=== PATIENT | male | born 1955 | race Caucasian/White ===

== ENCOUNTER 2019-12-29 19:25 | Emergency (ER) | payer OTHER ==
[~2019-12-29] VITALS: Ht 180.3 cm; Wt 120.2 kg
[2019-12-29 19:25] VITALS: BP 132/75
== END 2019-12-29 20:08 | disposition home or self-care (01) ==
LOC: ER 19:32
DX: L02.215 Cutaneous abscess of perineum (principal); I12.0 Hypertensive chronic kidney disease with stage 5 chronic kidney disease or end stage renal disease; E11.22 Type 2 diabetes mellitus with diabetic chronic kidney disease; N18.6 End stage renal disease; I25.2 Old myocardial infarction; E78.5 Hyperlipidemia, unspecified; Z95.5 Presence of coronary angioplasty implant and graft; Z99.2 Dependence on renal dialysis

== ENCOUNTER 2019-12-31 10:26 | Inpatient (IN) | payer OTHER ==
[~2019-12-31] VITALS: Ht 180.3 cm; Wt 120.2 kg
--- NOTE | 2019-12-31 10:30 | NUR ---
BIBRA60 HOME FOR WORSENING PERINEAL ABSCESS. TOOK ANTIBIOTICS, NO RELIEF. PATIENT A/OX4, BREATHING EVEN AND UNLABORED, NO SOB NOTED. C/O MILD PAIN. CHANGED INTO A GOWN, ATTACHED TO THE INTERVENTIONIST.
[2019-12-31] MEDS ORDERED: PIPERACILLIN /TAZOBACTAM 3.375 G in IV D5W 50 ML IV ONE (11:00)
[2019-12-31] MEDS ORDERED: VANCOMYCIN 1 GM in IV D5W 250 ML IV ONE (11:00)
[2019-12-31 11:16] LABS: ALBUMIN 3.1 g/dL (3.4-5.0); BILIRUBIN,DIRECT 0.2 mg/dL (0.0-0.2); BILIRUBIN,TOTAL 0.5 mg/dL (0.2-1.0); CALCIUM, SERUM 8.7 mg/dL (8.5-10.1); POTASSIUM 4.7 mmol/L (3.5-5.1); TOTAL PROTEIN, SERUM 7.3 g/dL (6.4-8.2)
--- NOTE | 2019-12-31 11:16 | NUR ---
MOVE SHEET COMPLETED AND CALLED FOR MS BED.
--- NOTE | 2019-12-31 11:28 | NUR ---
[facility] [phone] [facility] .
[2019-12-31] MEDS ORDERED: RALT400T PO (11:30)
[2019-12-31] MEDS ORDERED: ALBU8.5H8 INH (11:30)
[2019-12-31] MEDS ORDERED: CINA30TA2 PO (11:30)
[2019-12-31] MEDS ORDERED: ABAC300T2 PO (11:30)
[2019-12-31] MEDS ORDERED: SEVE800T28 PO (11:30)
[2019-12-31] MEDS ORDERED: WARF6TAB49 PO (11:30)
[2019-12-31] MEDS ORDERED: ETRA200T PO (11:30)
[2019-12-31] MEDS ORDERED: ATOR20TA PO (11:30)
[2019-12-31] MEDS ORDERED: AMIO200T5 PO (11:30)
[2019-12-31] MEDS ORDERED: INSU100C4 SQ (11:30)
[2019-12-31] MEDS ORDERED: PREG75CA76 PO (11:30)
[2019-12-31] MEDS ORDERED: INSU100V7 SQ (11:30)
[2019-12-31 11:32] LABS: BASOPHILS # (AUTO) 0.1 /CMM (0.0-0.2); BASOPHILS % (AUTO) 0.7 % (0.0-2.0); EOSINOPHILS % (AUTO) 4.3 % (0.0-6.0); HEMATOCRIT 31 % (39-51); LYMPHOCYTES # (AUTO) 1.4 /CMM (0.8-4.8); MEAN CORPUSCULAR HGB CONC 33 g/dl (31.0-36.0); MEAN CORPUSCULAR VOLUME 100 fL (80-96); MONOCYTES # (AUTO) 0.6 /CMM (0.1-1.30); MONOCYTES % (AUTO) 7.1 % (2.0-12.0); NEUTROPHILS # (AUTO) 6.6 /CMM (1.8-8.9); NEUTROPHILS % (AUTO) 72.9 % (43.0-81.0); PLATELET COUNT (AUTO) 177 /CMM (150-450); RED BLOOD CELL COUNT(AUTO) 3.06 MIL/uL (4.5-6.0)
[2019-12-31 11:37] LABS: CREATININE 7.9 mg/dL (0.6-1.3)
--- NOTE | 2019-12-31 12:08 | NUR ---
PT WILL GO TO MS RM 108.
--- NOTE | 2019-12-31 12:21 | NUR ---
RECEIVED AUTHORIZATION FOR PATIENT TO STAY [facility] СЕРГЕЙ. [phone]. FAX # FOR FACESHEET AND CLINICALS [phone]
--- NOTE | 2019-12-31 12:23 | NUR ---
BED 108
--- NOTE | 2019-12-31 12:25 | NUR ---
REPORT GIVEN TO VISH AMIN.
--- NOTE | 2019-12-31 13:06 | NUR ---
PATIENTS BED CHANGED TO 120, PATIENT A/OX4, BREATHING EVEN AND UNLABORED, NO SOB NOTED. TRANSFERRED TO [facility]. IN STABLE CONDITION.
--- NOTE | 2019-12-31 13:38 | NUR ---
PT RECEIVED FROM YARD SPOTTER JOHN. VITALS 139/74, PULSE 90, 99% O2, RR 24.. PT AMBULATORY AND SOB AFTER TRANSFERRING TO BED. Addendum: 12/31/19 at 1509 by ALEXI OTTO RN TEMP 98.3
[2019-12-31 16:00] VITALS: BP 140/78
[2019-12-31] MEDS ORDERED: Z GUARD REMEDY 2 OZ OINT TP PRN (16:00)
[2019-12-31] MEDS ORDERED: ACETAMINOPHEN 325 MG TABLET PO PRN (16:00)
[2019-12-31] MEDS ORDERED: ZOLPIDEM TARTRATE 5 MG TABLET PO PRN (16:00)
[2019-12-31] MEDS ORDERED: DEXTROSE 50%-WATER 50 ML DISP.SYRIN IV PRN (16:00)
[2019-12-31] MEDS ORDERED: ONDANSETRON HCL/PF 4 MG/2 ML VIAL IVP PRN (16:00)
[2019-12-31] MEDS ORDERED: MAGNESIUM HYDROXIDE 30 ML UDC PO PRN (16:00)
[2019-12-31] MEDS ORDERED: ALBUTEROL SULFATE INH 18 GM HFA.AER.AD IH SCH (16:30)
[2019-12-31] MEDS: WARFARIN SODIUM 5 MG TABLET PO SCH (17:00)
[2019-12-31] MEDS ORDERED: INTELENCE 200 MG PO SCH (17:00)
[2019-12-31] MEDS: BLOOD SUGAR DIAGNOSTIC 1 EACH STRIP IN SCH ×2 (17:37→22:09)
[2019-12-31] MEDS: SEVELAMER CARBONATE 800 MG TABLET PO SCH (17:38)
[2019-12-31] MEDS: HYDROCODONE/APAP 5/325MG TABLET PO PRN (17:50)
[2019-12-31] MEDS: INSULIN REGULAR, HUMAN 100 UNIT/ML 3 ML VIAL SQ PRN ×2 (17:53→22:13)
--- NOTE | 2019-12-31 18:43 | NUR ---
PT IN BED EATING DINNER ALERT AND ORIENTED X 4. PT ON RA, NOTES SOB UPON SITTING UP AND EXERTION. NO RESPIRATORY DISTRESS O2 SATURATION 96-100%. PT TO HAVE HD LATER TONIGHT. PT MODERATE ASSIST IN BED. PT HAS PERINEAL ABCESS TO BE DRAINED, OTHERWISE SKIN INTACT. PT HAS R FOOT DIABETIC ULCER PENDING WOUND AND PODIATRY CONSULT. PT HAS LEFT HAND #20 SALINE LOCKED AND FLUSHED WELL, NO SIGNS OF INFECTION OR INFILTRATION. PT HAS R AV SHUNT FOR HD. BED IN LOCKED LOWEST POSITION, CALL LIGHT WITHIN REACH, ALL SAFETY MEASURES IN PLACE. WILL GIVE REPORT TO ONCOMING RN FOR SANTOS
[2019-12-31 20:00] VITALS: BP 125/42
[2019-12-31] MEDS ORDERED: ALBUTEROL FS 2.5 MG/0.5 ML VIAL.NEB NEB PRN (21:00)
[2019-12-31] MEDS ORDERED: ALBUTEROL FS 2.5 MG/3 ML VIAL.NEB NEB PRN (21:00)
[2019-12-31] MEDS: PIPERACILLIN /TAZOBACTAM 2.25 G in IV D5W 50 ML IV SCH (21:42)
[2019-12-31] MEDS: ATORVASTATIN 10 MG TABLET PO SCH (21:42)
--- NOTE | 2019-12-31 23:25 | NUR ---
PRN VANCO IV AFTER HD CLARIFIED WITH SHOP DIRECTOR DICK, RE: IF DOSE TO BE GIVEN TONIGHT.
[2019-12-31] MEDS: VANCOMYCIN 500 MG in IV D5W 100 ML IV PRN (23:35)
[2020-01-01] MEDS ORDERED: LEVOFLOXACIN 250 MG /D5W 50 ML 250 MG in PREMIX 1 EA IV SCH ×2 (01:18→21:00)
[2020-01-01] MEDS ORDERED: LEVOFLOXACIN 250 MG /D5W 50 ML 50 ML IV ONE (01:43)
[2020-01-01] MEDS: HYDROCODONE/APAP 5/325MG TABLET PO PRN ×4 (03:56→16:27)
[2020-01-01] MEDS: PIPERACILLIN /TAZOBACTAM 2.25 G in IV D5W 50 ML IV SCH ×4 (04:48→21:16)
--- NOTE | 2020-01-01 06:31 | NUR ---
MS RN CLOSING NOTES: PATIENT IS SITTING AT THE EDGE OF THE BED, BRUSHING AND SHAVING. NO S/S OF DISTRESS NOTED. CALL LIGHT WITHIN REACH. BED. BED IN LOWEST AND LOCKED POSITION.PATIENT VERBALIZED" I FEEL VERY GOOD TODAY". AND ACCORDING TO THE PATIENT, HE RESTED THROUGHOUT THE NIGHT.
[2020-01-01 06:53] LABS: BASOPHILS # (AUTO) 0.1 /CMM (0.0-0.2); BASOPHILS % (AUTO) 0.8 % (0.0-2.0); EOSINOPHILS % (AUTO) 4.1 % (0.0-6.0); HEMATOCRIT 32 % (39-51); HEMOGLOBIN 10.5 g/dL (13.5-17.5); LYMPHOCYTES # (AUTO) 1.2 /CMM (0.8-4.8); LYMPHOCYTES % (AUTO) 9.6 % (20.0-44.0); MEAN CORPUSCULAR HGB CONC 33 g/dl (31.0-36.0); MEAN CORPUSCULAR VOLUME 100 fL (80-96); MONOCYTES # (AUTO) 0.7 /CMM (0.1-1.30); MONOCYTES % (AUTO) 5.8 % (2.0-12.0); NEUTROPHILS # (AUTO) 9.7 /CMM (1.8-8.9); NEUTROPHILS % (AUTO) 79.7 % (43.0-81.0); PLATELET COUNT (AUTO) 197 /CMM (150-450); RED BLOOD CELL COUNT(AUTO) 3.25 MIL/uL (4.5-6.0); WHITE BLOOD COUNT (AUTO) 12.1 K/uL (4.3-11.0)
[2020-01-01 07:31] LABS: CALCIUM, SERUM 9.2 mg/dL (8.5-10.1); MAGNESIUM 2.2 mg/dL (1.8-2.4); PHOSPHORUS 4.2 mg/dL (2.5-4.9); POTASSIUM 5.6 mmol/L (3.5-5.1)
[2020-01-01 07:58] LABS: CREATININE 7.5 mg/dL (0.6-1.3)
[2020-01-01 08:00] VITALS: BP 133/68
[2020-01-01] MEDS: CINACALCET HCL 30 MG TABLET PO SCH (08:18)
[2020-01-01] MEDS: SEVELAMER CARBONATE 800 MG TABLET PO SCH ×4 (08:18→18:31)
[2020-01-01] MEDS: PREGABALIN 25 MG CAPSULE PO SCH (08:18)
[2020-01-01] MEDS: BLOOD SUGAR DIAGNOSTIC 1 EACH STRIP IN SCH ×4 (08:18→22:06)
[2020-01-01] MEDS: INSULIN REGULAR, HUMAN 100 UNIT/ML 3 ML VIAL SQ PRN ×4 (08:19→22:13)
[2020-01-01] MEDS: AMIODARONE HCL 200 MG TABLET PO SCH (08:21)
--- NOTE | 2020-01-01 09:39 | NUR ---
WOUND CARE CONSULT: PT PRESENTS WITH DISCOLORED AREA BETWEEN SCROTUM AND PERINEUM WHICH IS PAINFUL AND ALSO HEALED DIABETIC ULCER TO RT PLANTAR FOOT, PRESENT ON ADMISSION. RECOMMENDATIONS MADE FOR SKIN PROTECTION. DISCUSSED WITH NURSING STAFF. PT IS INDEPENDENT WITH BED MOBILITY AND CONTINENT. WILL SEE PRN. KELLY IN AGREEMENT WITH PLAN OF CARE. Addendum: 01/01/20 at 0940 by KEHINDE BRASWELL WNDNU Amended: Links added.
[2020-01-01] MEDS ORDERED: MORPHINE SULFATE INJ 2 MG/ML DISP.SYRIN IV PRN (11:00)
[2020-01-01] MEDS ORDERED: LIDOCAINE 1%-EPI 1:100,000 20 ML VIAL IJ ONE (12:30)
--- NOTE | 2020-01-01 13:00 | NUR ---
RN MED SURG1 CALL PHARMACY ABOUT HOLDING RENVELA BECAUSE PATIENT WAS ON DIALYSIS AND WAS TOLD TO SKIP THE 1300 DOSE AND GIVE THE DINNER DOSE
[2020-01-01 16:00] VITALS: BP 117/67
[2020-01-01] MEDS: VANCOMYCIN 500 MG in IV D5W 100 ML IV PRN (18:01)
[2020-01-01] MEDS: WARFARIN SODIUM 5 MG TABLET PO SCH (18:01)
[2020-01-01 20:00] VITALS: BP 111/59
[2020-01-01] MEDS: ATORVASTATIN 10 MG TABLET PO SCH (22:07)
[2020-01-02 04:00] VITALS: BP 115/65
[2020-01-02] MEDS: PIPERACILLIN /TAZOBACTAM 2.25 G in IV D5W 50 ML IV SCH ×2 (05:21→14:25)
[2020-01-02 06:40] LABS: BASOPHILS # (AUTO) 0.1 /CMM (0.0-0.2); BASOPHILS % (AUTO) 0.8 % (0.0-2.0); EOSINOPHILS % (AUTO) 5.4 % (0.0-6.0); HEMATOCRIT 30 % (39-51); HEMOGLOBIN 9.9 g/dL (13.5-17.5); LYMPHOCYTES % (AUTO) 11.4 % (20.0-44.0); MEAN CORPUSCULAR HGB CONC 33 g/dl (31.0-36.0); MEAN CORPUSCULAR VOLUME 100 fL (80-96); MONOCYTES # (AUTO) 0.8 /CMM (0.1-1.30); MONOCYTES % (AUTO) 8.9 % (2.0-12.0); NEUTROPHILS # (AUTO) 6.4 /CMM (1.8-8.9); NEUTROPHILS % (AUTO) 73.5 % (43.0-81.0); PLATELET COUNT (AUTO) 166 /CMM (150-450); RED BLOOD CELL COUNT(AUTO) 3.03 MIL/uL (4.5-6.0); WHITE BLOOD COUNT (AUTO) 8.7 K/uL (4.3-11.0)
--- NOTE | 2020-01-02 06:44 | NUR ---
MS-1/LEONARDO CUETO RN ATTEMPTED [address] PERIPHERAL IV. NO IV LINE ESTABLISHED. MIDLINE ORDERED. KATYA CHOPPER OPERATOR NOTIFIED. WILL ENDORSE TO AM SHIFT.
[2020-01-02 07:06] LABS: CALCIUM, SERUM 9.2 mg/dL (8.5-10.1); MAGNESIUM 2.3 mg/dL (1.8-2.4); PHOSPHORUS 4.9 mg/dL (2.5-4.9)
[2020-01-02 07:13] LABS: CREATININE 7.7 mg/dL (0.6-1.3)
--- NOTE | 2020-01-02 07:30 | NUR ---
RN MS NOTES PT IN BED, AWAKE, ALERT AND ORIENTED, NO COMPLAINT AT THIS TIME, RESPIRATIONS NORMAL, NOT IN DISTRESS, CALL LIGHT WITHIN REACH, EATING BREAKFAST, NO BLEEDING NOTED AT AV FISTULA SITE AT RIGHT ARM, NEEDS ATTENDED.
[2020-01-02 08:00] VITALS: BP 128/70
[2020-01-02] MEDS: SEVELAMER CARBONATE 800 MG TABLET PO SCH ×3 (08:05→17:12)
[2020-01-02] MEDS: PREGABALIN 25 MG CAPSULE PO SCH (08:05)
[2020-01-02] MEDS: CINACALCET HCL 30 MG TABLET PO SCH (08:06)
[2020-01-02] MEDS: AMIODARONE HCL 200 MG TABLET PO SCH (08:06)
[2020-01-02] MEDS: BLOOD SUGAR DIAGNOSTIC 1 EACH STRIP IN SCH ×3 (08:12→17:36)
[2020-01-02] MEDS: INSULIN REGULAR, HUMAN 100 UNIT/ML 3 ML VIAL SQ PRN ×3 (08:12→17:36)
[2020-01-02] MEDS: HYDROCODONE/APAP 5/325MG TABLET PO PRN (10:08)
--- NOTE | 2020-01-02 13:08 | NUR ---
RN MS NOTES PT IN BED, AWAKE, ALERT AND ORIENTED, PAIN MEDS GIVEN ORDERED, DRESSING AT PERINEAL/SCROTAL AREA CHANGED, NO BLEEDING OR DISCHARGE NOTED, BLOOD SUGAR CHECKED, INSULIN GIVEN PER SLIDING SCALE ORDERED, AWAITING MIDLINE PLACEMENT, NEEDS ATTENDED.
[2020-01-02] MEDS ORDERED: LEVO500T90 PO (15:39)
[2020-01-02] MEDS ORDERED: HYDR-4384 PO (15:39)
[2020-01-02 16:00] VITALS: BP 140/74
[2020-01-02] MEDS ORDERED: ABACAVIR SULFATE 300 MG TABLET PO SCH (16:00)
[2020-01-02] MEDS: WARFARIN SODIUM 5 MG TABLET PO SCH (16:17)
[2020-01-02] MEDS ORDERED: RALTEGRAVIR POTASSIUM 400 MG TABLET PO SCH (17:00)
--- NOTE | 2020-01-02 18:08 | NUR ---
RN MS NOTES PT IN BED, AWAKE, ALERT AND ORIENTED, NO COMPLAINT OF PAIN, BREATHING PATTERN NORMAL, TOLERATES ROOM AIR, SEEN BY DR. RANDLE, DISCHARGE ORDER GIVEN, DISCHARGE AND MEDICATION INSTRUCTIONS PROVIDED TO PT, VERBALIZED UNDERSTANDING, PT'S OWN MEDS GIVEN TO PT, BELONGINGS ACCOUNTED FOR, WOUND DRESSING AND WOUND TREATMENT DONE ORDERED, NEW PRESCRIPTION GIVEN TO PT, AWAITING AMBULANCE FLAMER SEALER AT 7PM.
--- NOTE | 2020-01-02 19:39 | NUR ---
ON BED A/O X4,AWAITING FOR TRANSPORT TO HOME,DENIES ANY DISCOMFORTS.
--- NOTE | 2020-01-02 20:11 | NUR ---
MS RN NOTES HARDNESS INSPECTOR BY AMBULANCE TO HOME IN STABLE CONDITION.MIDLINE LEFT UPPER ARM REMOVED.NO BLEEDING NOTED.
== END 2020-01-02 20:09 | disposition home or self-care (01) | DRG 579 ==
LOC: ER 10:37 → MEDSG1 12:32
PROVIDERS: ADMIT Nurse Practitioner Acute Care; ATTEND Nurse Practitioner Acute Care
PROC: 5A1D70Z Performance of Urinary Filtration, Intermittent, Less than 6 Hours Per Day (ICD-10-PCS; 2019-12-31)
PROC: 0H99XZZ Drainage of Perineum Skin, External Approach (ICD-10-PCS; principal; 2020-01-01)
PROC: 05H633Z Insertion of Infusion Device into Left Subclavian Vein, Percutaneous Approach (ICD-10-PCS; 2020-01-02)
PROC: B547ZZA Ultrasonography of Left Subclavian Vein, Guidance (ICD-10-PCS; 2020-01-02)
DX: L02.215 Cutaneous abscess of perineum (principal); N18.6 End stage renal disease; E87.1 Hypo-osmolality and hyponatremia; I12.0 Hypertensive chronic kidney disease with stage 5 chronic kidney disease or end stage renal disease; E44.0 Moderate protein-calorie malnutrition; D68.69 Other thrombophilia; N49.2 Inflammatory disorders of scrotum; Z99.2 Dependence on renal dialysis; E11.22 Type 2 diabetes mellitus with diabetic chronic kidney disease; E78.5 Hyperlipidemia, unspecified; I25.10 Atherosclerotic heart disease of native coronary artery without angina pectoris; E88.09 Other disorders of plasma-protein metabolism, not elsewhere classified; E11.621 Type 2 diabetes mellitus with foot ulcer; L97.519 Non-pressure chronic ulcer of other part of right foot with unspecified severity; E66.9 Obesity, unspecified; Z68.37 Body mass index [BMI] 37.0-37.9, adult; D63.1 Anemia in chronic kidney disease; Z79.4 Long term (current) use of insulin; E11.51 Type 2 diabetes mellitus with diabetic peripheral angiopathy without gangrene; I25.2 Old myocardial infarction; Z79.899 Other long term (current) drug therapy
CPT/HCPCS: 36415; 71045-TC; 76870-TC; 80048-TC; 80061-TC; 80076-TC; 80202-TC; 82962-TC; 83605-TC; 83735-TC; 84100-TC; 85025-TC; 85610-TC; 85730-TC; 87040-TC; 87070-TC; 87081-TC; 90935-TC; A4216; A6253; A6403; G0378; J1815; J1956; J2543; J3370; J3490; J7050; J7060

== ENCOUNTER 2020-01-21 20:14 | Emergency (ER) | payer OTHER ==
[~2020-01-21] VITALS: Ht 180.3 cm; Wt 117.9 kg
[~2020-01-21 20:14] MED LIST: ABAC300T2 PO; ALBU8.5H8 INH; AMIO200T5 PO; ATOR20TA PO; CINA30TA2 PO; ETRA200T PO; HYDR-4384 PO; INSU100C4 SQ; INSU100V7 SQ; LEVO500T90 PO; PREG75CA76 PO; RALT400T PO; SEVE800T28 PO; WARF6TAB49 PO
--- NOTE | 2020-01-21 21:22 | NUR ---
C/O FOREHEAD CONTUSION S/P TRIP AND FALL HIT FACE ON THE FLOOR. (-)KO TO ER BED 15.
--- NOTE | 2020-01-21 21:28 | NUR ---
PT TAKEN TO CT
--- NOTE | 2020-01-21 21:38 | NUR ---
PT BACK FROM CT
--- NOTE | 2020-01-21 21:45 | NUR ---
PHLEB AT BEDSIDE DRAWING LABS
[2020-01-21 22:15] LABS: BASOPHILS % (AUTO) 0.8 % (0.0-2.0); EOSINOPHILS % (AUTO) 6.5 % (0.0-6.0); HEMATOCRIT 31 % (39-51); HEMOGLOBIN 9.9 g/dL (13.5-17.5); LYMPHOCYTES # (AUTO) 0.8 /CMM (0.8-4.8); LYMPHOCYTES % (AUTO) 20.3 % (20.0-44.0); MEAN CORPUSCULAR HGB CONC 32 g/dl (31.0-36.0); MEAN CORPUSCULAR VOLUME 101 fL (80-96); MONOCYTES # (AUTO) 0.3 /CMM (0.1-1.30); MONOCYTES % (AUTO) 8.1 % (2.0-12.0); NEUTROPHILS # (AUTO) 2.6 /CMM (1.8-8.9); NEUTROPHILS % (AUTO) 64.3 % (43.0-81.0); PLATELET COUNT (AUTO) 121 /CMM (150-450); RED BLOOD CELL COUNT(AUTO) 3.08 MIL/uL (4.5-6.0); WHITE BLOOD COUNT (AUTO) 4.1 K/uL (4.3-11.0)
[2020-01-21 22:42] LABS: POTASSIUM 5.4 mmol/L (3.5-5.1)
--- NOTE | 2020-01-21 22:47 | NUR ---
Patient discharged to home in stable condition. Written and verbal after care instructions given. Patient verbalizes understanding of instruction.
[2020-01-21 22:48] VITALS: BP 139/61
[2020-01-21 22:48] LABS: CREATININE 8.9 mg/dL (0.6-1.3)
== END 2020-01-21 22:49 | disposition home or self-care (01) ==
LOC: ER 20:14
DX: S00.83XA Contusion of other part of head, initial encounter (principal); S00.11XA Contusion of right eyelid and periocular area, initial encounter; I12.0 Hypertensive chronic kidney disease with stage 5 chronic kidney disease or end stage renal disease; E11.22 Type 2 diabetes mellitus with diabetic chronic kidney disease; N18.6 End stage renal disease; R79.1 Abnormal coagulation profile; E78.5 Hyperlipidemia, unspecified; I25.2 Old myocardial infarction; Z99.2 Dependence on renal dialysis; Z95.5 Presence of coronary angioplasty implant and graft; Z79.4 Long term (current) use of insulin; Z79.82 Long term (current) use of aspirin; W01.0XXA Fall on same level from slipping, tripping and stumbling without subsequent striking against object, initial encounter; Y93.89 Activity, other specified; Y92.89 Other specified places as the place of occurrence of the external cause; Y99.8 Other external cause status
CPT/HCPCS: 36415; 70450-TC; 80048-TC; 85025-TC; 85730-TC

== ENCOUNTER 2020-08-27 10:27 | Emergency (ER) | payer OTHER ==
[~2020-08-27] VITALS: Ht 175.3 cm; Wt 120.2 kg
--- NOTE | 2020-08-27 10:27 | NUR ---
PT BIBRA 860 FROM HOME C/O LOW BACK PAIN S/P SLIP AND FALL. PT IS AAOX4, NOT IN RESPIRATORY DISTRESS, V/S STABLE, KEPT RESTED AND COMFORTABLE. WILL CONTINUE TO MONITOR.
--- NOTE | 2020-08-27 10:43 | NUR ---
AT BEDSIDE FOR BLOOD DRAW.
--- NOTE | 2020-08-27 11:25 | NUR ---
PT IS BACK FROM THE CT SCAN.
--- NOTE | 2020-08-27 12:43 | NUR ---
TRANSPORT CALLED [facility] WITH ETA 60 MINS.
[2020-08-27] MEDS ORDERED: ACETAMINOPHEN ES 500 MG TABLET ONE (12:58)
[2020-08-27] MEDS ORDERED: ACETAMINOPHEN ES 500 MG TABLET PO ONE (13:30)
--- NOTE | 2020-08-27 13:49 | NUR ---
REPORT GIVEN TO EMT FOR PT DISHARGED BACK HOME. V/S STABLE.
[2020-08-27 13:50] VITALS: BP 131/62
== END 2020-08-27 13:50 | disposition home or self-care (01) ==
LOC: ER 10:45
DX: S33.5XXA Sprain of ligaments of lumbar spine, initial encounter (principal); S16.1XXA Strain of muscle, fascia and tendon at neck level, initial encounter; S89.82XA Other specified injuries of left lower leg, initial encounter; R51.9 Headache, unspecified; I25.2 Old myocardial infarction; E78.5 Hyperlipidemia, unspecified; I12.0 Hypertensive chronic kidney disease with stage 5 chronic kidney disease or end stage renal disease; E11.22 Type 2 diabetes mellitus with diabetic chronic kidney disease; N18.6 End stage renal disease; Z99.2 Dependence on renal dialysis; E11.40 Type 2 diabetes mellitus with diabetic neuropathy, unspecified; Z79.4 Long term (current) use of insulin; Z79.899 Other long term (current) drug therapy; Z79.01 Long term (current) use of anticoagulants; W01.0XXA Fall on same level from slipping, tripping and stumbling without subsequent striking against object, initial encounter; Y93.89 Activity, other specified; Y92.89 Other specified places as the place of occurrence of the external cause; Y99.8 Other external cause status
CPT/HCPCS: 70450-TC; 72125-TC; 72131-TC; 73564-TC

== ENCOUNTER 2021-08-30 09:59 | Inpatient (IN) | payer OTHER ==
[~2021-08-30] VITALS: Ht 180.3 cm; Wt 121.6 kg
[~2021-08-30 09:59] MED LIST changes: +PREG-58 PO; -PREG75CA76 PO
--- NOTE | 2021-08-30 10:20 | NUR ---
THE PATIENT BIBS FOR DIALYSIS SHUNT MALFUNCTION,R FA,UNABLE TO BE DIALYZED THIS MORNING. THE PATIENT IS ALERT AND ORIENTED X4. IN ROOM AIR AND DENIES SOB. RESPIRATION REGULAR AND UNLABORED. THE PATIENT IS ATTACHED TO THE MONITOR. WILL CONTINUE TO MONITOR THE PATIENT.
[2021-08-30 10:52] LABS: BASOPHILS % (AUTO) 0.5 % (0.0-2.0); EOSINOPHILS % (AUTO) 6.5 % (0.0-6.0); HEMATOCRIT 33 % (39-51); HEMOGLOBIN 10.8 g/dL (13.5-17.5); LYMPHOCYTES % (AUTO) 12.1 % (20.0-44.0); MEAN CORPUSCULAR HGB CONC 32 g/dl (31.0-36.0); MEAN CORPUSCULAR VOLUME 94 fL (80-96); MONOCYTES # (AUTO) 0.5 K/uL (0.1-1.30); MONOCYTES % (AUTO) 6.1 % (2.0-12.0); NEUTROPHILS # (AUTO) 5.9 K/uL (1.8-8.9); NEUTROPHILS % (AUTO) 74.8 % (43.0-81.0); PLATELET COUNT (AUTO) 131 K/uL (150-450); RED BLOOD CELL COUNT(AUTO) 3.56 MIL/uL (4.5-6.0); WHITE BLOOD COUNT (AUTO) 7.9 K/uL (4.3-11.0)
[2021-08-30 11:03] LABS: CALCIUM, SERUM 9.1 mg/dL (8.5-10.1); POTASSIUM 5.1 mmol/L (3.5-5.1)
--- NOTE | 2021-08-30 11:13 | NUR ---
TAMMY 9.2 DR[address] ZAYAS INFORMED.
[2021-08-30 11:14] LABS: CREATININE 9.2 mg/dL (0.6-1.3)
--- NOTE | 2021-08-30 11:14 | NUR ---
MOVE SHEET SUBMITTED.
--- NOTE | 2021-08-30 11:30 | NUR ---
CALLED [facility]ULAR [employer] WILL CALL US BACK.
--- NOTE | 2021-08-30 11:34 | NUR ---
DR. WILBURN SPEAKING WITH DR. ZAYAS.
--- NOTE | 2021-08-30 11:34 | NUR ---
[facility] CALLED [employer] PAGED.
--- NOTE | 2021-08-30 11:39 | NUR ---
covid antigen swab done and sent to the lab
[2021-08-30] MEDS ORDERED: LIDO30AD10 TP (12:33)
[2021-08-30] MEDS ORDERED: LIRA0.6P2 PO (12:33)
[2021-08-30] MEDS ORDERED: ALBU8.5H8 INH (12:33)
[2021-08-30] MEDS ORDERED: DOLU1TAB PO (12:33)
[2021-08-30] MEDS ORDERED: AMIO200T5 PO (12:33)
[2021-08-30] MEDS ORDERED: PREG-58 PO (12:33)
[2021-08-30] MEDS ORDERED: ATOR20TA PO (12:33)
[2021-08-30] MEDS ORDERED: INSU100I4 SQ (12:33)
[2021-08-30] MEDS ORDERED: CLOP75TA15 PO (12:33)
[2021-08-30] MEDS ORDERED: INSU100V7 SQ (12:33)
[2021-08-30] MEDS ORDERED: CARV3.122 PO (12:33)
[2021-08-30] MEDS ORDERED: MIDO10TA PO (12:33)
[2021-08-30] MEDS ORDERED: ONDANSETRON HCL/PF 4 MG/2 ML VIAL IVP PRN (13:00)
[2021-08-30] MEDS ORDERED: DEXTROSE 50%-WATER 50 ML DISP.SYRIN IV PRN (13:00)
[2021-08-30] MEDS ORDERED: ACETAMINOPHEN 325 MG TABLET PO PRN (13:00)
[2021-08-30] MEDS ORDERED: MAG HYDROX/AL HYDROX/SIMETH 30 ML UDC PO PRN (13:00)
[2021-08-30] MEDS ORDERED: MAGNESIUM HYDROXIDE 30 ML UDC PO PRN (13:00)
[2021-08-30] MEDS ORDERED: Z GUARD REMEDY 4 OZ OINT TP PRN (13:00)
[2021-08-30] MEDS: BLOOD SUGAR DIAGNOSTIC 1 EACH STRIP IN SCH ×3 (13:16→21:00)
[2021-08-30] MEDS: INSULIN REGULAR, HUMAN 100 UNIT/ML 3 ML VIAL SQ PRN ×3 (13:16→22:00)
[2021-08-30] MEDS ORDERED: INSULIN REGULAR, HUMAN 100 UNIT/ML 10 ML VIAL ONE (13:24)
--- NOTE | 2021-08-30 13:30 | NUR ---
BED GIVEN 327-1
--- NOTE | 2021-08-30 13:30 | NUR ---
RENAL STD AND CCHO STD DIET START TIME 08/30/21 LUNCH AND NPO AFTER MIDNIGHT PER BERNADETTE SIMON. THE ORDERS ARE READ BACK, VERIFIED. NOTED AND CARRIED OUT.
--- NOTE | 2021-08-30 13:40 | NUR ---
REPORT GIVEN TO CRYSTAL FOR SANTOS
[2021-08-30] MEDS ORDERED: LIDOCAINE 5% (PATCH) 1 EA PATCH TP PRN (14:00)
--- NOTE | 2021-08-30 14:12 | NUR ---
DR WILBURN AT THE BEDSIDE, RECEIVED A NEW ORDER OF KAYEXELATE 30 G ONCE. THE ORDER IS READ BACK, VERIFIED. NOTED AND CARRIED OUT.
[2021-08-30] MEDS ORDERED: SODIUM POLYSTYRENE SULFONATE 15 G/60 ML BOTTLE ONE (14:17)
[2021-08-30] MEDS ORDERED: SODIUM POLYSTYRENE SULFONATE 15 G/60 ML BOTTLE PO ONE (14:30)
--- NOTE | 2021-08-30 14:46 | NUR ---
THE PATIENT IS TRANSFERED TO ROOM 327-1 IN STABLE CONDITION AND PER ACLS POLICY.
[2021-08-30 14:50] VITALS: BP 141/65
--- NOTE | 2021-08-30 15:00 | NUR ---
MS CLIENT RETENTION SPECIALIST NOTES RECEIVED PATIENT FROM ER ENDORSED BY ELOISA WRIGHT VIA NICOLLE. PATIENT IS AWAKE AND A/O X4. ON ROOM AIR TOLERATING WELL. NO SOB NOTED. NOT IN DISTRESS. WITH IV ACCESS AT THE LEFT HAND G20 SALINE LOCKED, PATENT AND INTACT. SKIN ASSESSMENT DONE AND PLACED PHOTOS IN CHART. SAFETY MEASURES IN PLACED. CALL LIGHT WITHIN REACH. BED ON LOWEST LOCKED POSITION, SIDE RAILS UP X2. WILL CONTINUE TO MONITOR.
[2021-08-30] MEDS: CARVEDILOL 3.125 MG TABLET PO SCH (16:55)
[2021-08-30] MEDS: PREGABALIN 25 MG CAPSULE PO SCH (16:55)
[2021-08-30] MEDS: INSULIN GLARGINE, 100 UNIT/ML CARTRIDGE SQ SCH (16:59)
--- NOTE | 2021-08-30 19:20 | NUR ---
MS RN CLOSING NOTES PATIENT ON BED AWAKE AND A/O X4. ON ROOM AIR TOLERATING WELL. NO SOB NOTED. NOT IN DISTRESS. WITH NO COMPLAINTS OF PAIN OR DISCOMFORT AT THIS TIME. WITH IV ACCESS AT THE LEFT HAND G20 SALINE LOCKED, PATENT AND INTACT. DUE MEDS GIVEN. SAFETY MEASURES IN PLACED. CALL LIGHT WITHIN REACH. BED ON LOWEST LOCKED POSITION, SIDE RAILS UP X2. WILL ENDORSE TO NEXT SHIFT FOR SANTOS.
--- NOTE | 2021-08-30 19:46 | NUR ---
MS RN OPENING NOTES: RECEIVED PATIENT AWAKE IN BED, BED IN LOW POSITION CALL LIGHTS WITHIN REACH, NO COMPLAIN OF PAIN AND DISCOMFORT AT THIS TIME ON ROOM AIR SATURATING WELL, PATIENT IS A/OX4 ABLE TO MAKE NEEDS KNOWN, WITH IV LINE AT LEFT HAND#20 SL, PATIENT KEPT CLEAN AND DRY ALL NEEDS MET WILL CONTINUE TO MONITOR.
[2021-08-30 20:25] VITALS: BP 128/69
--- NOTE | 2021-08-30 22:05 | NUR ---
rn notes: blood sugar-301- 8 units insulin given
[2021-08-30] MEDS: ALBUTEROL FS 2.5 MG/3 ML VIAL.NEB NEB PRN (22:09)
[2021-08-30] MEDS: ATORVASTATIN 10 MG TABLET PO SCH (22:10)
[2021-08-31] MEDS: BLOOD SUGAR DIAGNOSTIC 1 EACH STRIP IN SCH ×6 (01:00→20:49)
--- NOTE | 2021-08-31 01:00 | NUR ---
RN NOTES: BLOOD SUGAR =240 NO INSULIN GIVEN PATIENT IS NPO
[2021-08-31 04:00] VITALS: BP 149/70
--- NOTE | 2021-08-31 05:24 | NUR ---
RN NOTES: BLOOD SUGAR -154 INSULIN NOT GIVEN PATIENT ON NPO FOR HD PERMACATH PLACEMENT.
[2021-08-31] MEDS: ALBUTEROL FS 2.5 MG/3 ML VIAL.NEB NEB PRN ×3 (05:40→22:34)
--- NOTE | 2021-08-31 06:38 | NUR ---
[employer] SALES REPRESENTATIVE CLOSING NOTES: PATIENT AWAKE IN BED, BED IN LOW POSITION CALL LIGHTS WITHIN REACH, NO COMPLAIN OF PAIN AND DISCOMFORT AT THIS TIME, ON ROOM AIR SATURATING WELL, PATIENT ON TELE MONITOR- SR WITH 1 DEGREE AVB NO SYMPTOMS WAS OBSERVED, ON NPO KEPT CLEAN AND DRY ALL NEEDS MET ENDORSE TO INCOMING SHIFT.
--- NOTE | 2021-08-31 07:30 | NUR ---
MS RN OPENING NOTES PATIENT ON BED AWAKE AND A/O X4. ON ROOM AIR TOLERATING WELL. NO SOB NOTED. NOT IN DISTRESS. WITH NO COMPLAINTS OF PAIN OR DISCOMFORT AT THIS TIME. ON TELE MONITOR CURRENTLY READING SINUS RHYTHM AT 75 BPM WITH AVB. WITH IV ACCESS AT THE LEFT HAND G20 SALINE LOCKED, PATENT AND INTACT. PATIENT IS ON NPO FOR HD PERMACATH PLACEMENT. SAFETY MEASURES IN PLACED. CALL LIGHT WITHIN REACH. BED ON LOWEST LOCKED POSITION, SIDE RAILS UP X2. WILL CONTINUE TO MONITOR.
[2021-08-31 08:00] VITALS: BP 118/48
[2021-08-31 08:44] LABS: CALCIUM, SERUM 8.9 mg/dL (8.5-10.1); MAGNESIUM 2.4 mg/dL (1.8-2.4); PHOSPHORUS 7.2 mg/dL (2.5-4.9); POTASSIUM 4.8 mmol/L (3.5-5.1)
[2021-08-31] MEDS: PREGABALIN 25 MG CAPSULE PO SCH ×2 (08:47→17:19)
[2021-08-31] MEDS: PANTOPRAZOLE 40 MG TABLET.DR PO SCH (08:48)
[2021-08-31 08:53] LABS: CREATININE 10.7 mg/dL (0.6-1.3)
[2021-08-31] MEDS: AMIODARONE HCL 200 MG TABLET PO SCH (08:55)
[2021-08-31] MEDS: VICTOZA IJ SCH (08:55)
[2021-08-31] MEDS: JULUCA PO SCH (08:56)
[2021-08-31] MEDS: CARVEDILOL 3.125 MG TABLET PO SCH ×2 (08:56→17:19)
[2021-08-31] MEDS: CLOPIDOGREL BISULFATE 75 MG TABLET PO SCH (08:56)
[2021-08-31] MEDS: INSULIN GLARGINE, 100 UNIT/ML CARTRIDGE SQ SCH ×2 (08:57→17:23)
[2021-08-31 09:26] LABS: THYROID STIMULATING HORMONE 2.946 uIU/mL (0.358-3.74)
[2021-08-31 09:40] LABS: BASOPHILS % (AUTO) 0.6 % (0.0-2.0); EOSINOPHILS % (AUTO) 5.6 % (0.0-6.0); HEMATOCRIT 34 % (39-51); LYMPHOCYTES # (AUTO) 0.9 K/uL (0.8-4.8); LYMPHOCYTES % (AUTO) 12.8 % (20.0-44.0); MEAN CORPUSCULAR HGB CONC 32 g/dl (31.0-36.0); MEAN CORPUSCULAR VOLUME 94 fL (80-96); MONOCYTES # (AUTO) 0.4 K/uL (0.1-1.30); MONOCYTES % (AUTO) 5.9 % (2.0-12.0); NEUTROPHILS # (AUTO) 5.2 K/uL (1.8-8.9); NEUTROPHILS % (AUTO) 75.1 % (43.0-81.0); PLATELET COUNT (AUTO) 138 K/uL (150-450); RED BLOOD CELL COUNT(AUTO) 3.64 MIL/uL (4.5-6.0)
[2021-08-31] MEDS ORDERED: SODIUM POLYSTYRENE SULFONATE 15 G/60 ML BOTTLE PO ONE (14:30)
[2021-08-31 16:00] VITALS: BP 121/65
[2021-08-31] MEDS: INSULIN REGULAR, HUMAN 100 UNIT/ML 3 ML VIAL SQ PRN ×2 (17:22→20:51)
--- NOTE | 2021-08-31 18:20 | NUR ---
MS RN CLOSING NOTES PATIENT ON BED AWAKE AND A/O X4. ON ROOM AIR TOLERATING WELL. NO SOB NOTED. NOT IN DISTRESS. PATIENT WAS ABLE TO PASS STOOLS TWICE AFTER THE ADMINISTRATION OF KAYEXELATE. WITH NO COMPLAINTS OF PAIN OR DISCOMFORT AT THIS TIME. WITH IV ACCESS AT THE LEFT HAND G20 SALINE LOCKED, PATENT AND INTACT. LAST BLOOD GLUCOSE WAS 266, DUE INSULIN/MEDS GIVEN. SAFETY MEASURES IN PLACED. CALL LIGHT WITHIN REACH. BED ON LOWEST LOCKED POSITION, SIDE RAILS UP X2. WILL ENDORSE TO NEXT SHIFT FOR SANTOS.
[2021-08-31 20:00] VITALS: BP 115/62
--- NOTE | 2021-08-31 20:35 | NUR ---
RN OPENING NOTES RECEIVED PT IN BED, AWAKE, SITTING IN BED. AOx4, ABLE TO MAKE NEEDS KNOWN. ON RA AND TOLERATING WELL. NO SOB NOTED. NO S/SX OF RESPIRATORY DISTRESS NOTED. TELE MONITOR DETECTS SINUS RHYTHM WITH AV BLOCK AND RATE OF 75. IV ACCESS IN L HAND #20G. IV IS INTACT, PATENT, AND FLUSHING WELL. SAFETY PRECAUTIONS IN PLACE: BED IN LOWEST, LOCKED POSITON, SIDERAILS UPx2, AND BRAKES ON. TABLE AND CALL LIGHT WITHIN REACH. WILL CONTINUE TO MONITOR.
[2021-08-31] MEDS: ATORVASTATIN 10 MG TABLET PO SCH (21:00)
[2021-08-31] MEDS: ALBUTEROL FS 2.5 MG/0.5 ML VIAL.NEB NEB SCH (22:52)
[2021-08-31] MEDS: IPRATROPIUM NEB FS 0.5 MG/2.5 ML AMPUL.NEB NEB SCH (22:52)
[2021-09-01] VITALS (10 sets, daily range): BP systolic 96–133; BP diastolic 48–74
[2021-09-01] MEDS: INSULIN REGULAR, HUMAN 100 UNIT/ML 3 ML VIAL SQ PRN ×3 (00:30→21:39)
[2021-09-01] MEDS: BLOOD SUGAR DIAGNOSTIC 1 EACH STRIP IN SCH ×6 (00:30→21:40)
[2021-09-01] MEDS: ALBUTEROL FS 2.5 MG/0.5 ML VIAL.NEB NEB SCH ×6 (02:43→23:48)
[2021-09-01] MEDS: IPRATROPIUM NEB FS 0.5 MG/2.5 ML AMPUL.NEB NEB SCH ×6 (02:43→23:48)
--- NOTE | 2021-09-01 06:41 | NUR ---
RN CLOSING NOTES PT IN BED, AWAKE, SITTING IN BED. AOx4, ABLE TO MAKE NEEDS KNOWN. ON RA AND TOLERATING WELL. NO SOB NOTED. NO S/SX OF RESPIRATORY DISTRESS NOTED. TELE MONITOR DETECTS SINUS RHYTHM WITH BBB AND 1ST DEGREE AV BLOCK AND RATE OF 75. IV ACCESS IN L HAND #20G. IV IS INTACT, PATENT, AND FLUSHING WELL. ALL ORDERS CARRIED OUT. ALL NEEDS MET. PT KEPT CLEAN AND DRY. SAFETY PRECAUTIONS IN PLACE: BED IN LOWEST, LOCKED POSITON, SIDERAILS UPx2, AND BRAKES ON. TABLE AND CALL LIGHT WITHIN REACH. WILL ENDORSE TO ONCOMING SHIFT FOR SANTOS.
[2021-09-01 06:50] LABS: CALCIUM, SERUM 8.7 mg/dL (8.5-10.1); MAGNESIUM 2.2 mg/dL (1.8-2.4); POTASSIUM 4.4 mmol/L (3.5-5.1)
[2021-09-01 06:52] LABS: BASOPHILS % (AUTO) 0.5 % (0.0-2.0); EOSINOPHILS % (AUTO) 6.1 % (0.0-6.0); HEMATOCRIT 32 % (39-51); HEMOGLOBIN 10.4 g/dL (13.5-17.5); LYMPHOCYTES % (AUTO) 15.7 % (20.0-44.0); MEAN CORPUSCULAR HGB CONC 33 g/dl (31.0-36.0); MEAN CORPUSCULAR VOLUME 94 fL (80-96); MONOCYTES # (AUTO) 0.4 K/uL (0.1-1.30); MONOCYTES % (AUTO) 7.3 % (2.0-12.0); NEUTROPHILS # (AUTO) 4.3 K/uL (1.8-8.9); NEUTROPHILS % (AUTO) 70.4 % (43.0-81.0); PLATELET COUNT (AUTO) 129 K/uL (150-450); RED BLOOD CELL COUNT(AUTO) 3.37 MIL/uL (4.5-6.0); WHITE BLOOD COUNT (AUTO) 6.1 K/uL (4.3-11.0)
[2021-09-01 06:55] LABS: CREATININE 11.5 mg/dL (0.6-1.3)
[2021-09-01 06:56] LABS: PHOSPHORUS 8.4 mg/dL (2.5-4.9)
--- NOTE | 2021-09-01 07:30 | NUR ---
RN Noted Received report from RN, pt stable able to express concerns. Pt states no discomfort but ready to move forward with procedure. Stares he wants to go home. Vital signs stable, bed at lowest procedure, call light within reach. Pending wound care visit and inhaler delivery, will follow up.
[2021-09-01] MEDS: PANTOPRAZOLE 40 MG TABLET.DR PO SCH (08:01)
[2021-09-01] MEDS: JULUCA PO SCH (08:37)
[2021-09-01] MEDS: PREGABALIN 25 MG CAPSULE PO SCH ×2 (08:42→17:36)
[2021-09-01] MEDS: CLOPIDOGREL BISULFATE 75 MG TABLET PO SCH (08:42)
[2021-09-01] MEDS: CARVEDILOL 3.125 MG TABLET PO SCH ×2 (08:48→17:26)
[2021-09-01] MEDS: AMIODARONE HCL 200 MG TABLET PO SCH (08:48)
[2021-09-01] MEDS: VICTOZA IJ SCH (09:00)
[2021-09-01] MEDS: INSULIN GLARGINE, 100 UNIT/ML CARTRIDGE SQ SCH ×2 (09:00→18:41)
--- NOTE | 2021-09-01 09:00 | NUR ---
AUTOMATION CONSULTANT NOTES MED NON ADMIN, PT SAID HE IS NOT TAKING IT.
--- NOTE | 2021-09-01 09:43 | NUR ---
WOUND CARE CONSULT: PT PRESENTS WITH BOOT ON RT LOWER LEG AND FOOT, WHICH HE DOES NOT WANT TO REMOVE. PT STATES HAS HISTORY OF DIABETIC ULCER THAT HEALED AND THERE IS DRY WOUND/CALLUS TO RT HEEL PER ADMISSION DOCUMENTATION. PT STATES THAT HE BUMPED HIS LEFT LOWER LEG WHEN HE WAS WALKING TO BATHROOM AND HAS A SKIN TEAR/ABRASION TO LEFT LOWER LEG. DR GARCIA NOTIFIED OF DPM CONSULT REQUEST. IN AGREEMENT WITH PLAN OF CARE.
--- NOTE | 2021-09-01 09:45 | NUR ---
HERPETOLOGY TEACHER NOTE Insulin not administered, blood sugar 169, pt NPO for surgery
[2021-09-01] MEDS ORDERED: ALBUTEROL SULFATE 8 GM HFA.AER.AD IH PRN (10:00)
[2021-09-01] MEDS ORDERED: ANESTHESIA TRAY IN PYXIS 1 EA TRAY MC ONE (12:25)
[2021-09-01] MEDS ORDERED: LIDOCAINE 1% INJ 50 ML MDV IJ ONE (14:33)
[2021-09-01] MEDS ORDERED: HEPARIN SODIUM, PORCINE 1,000 UNIT/ML VIAL ONE (14:33)
[2021-09-01] MEDS ORDERED: IOHEXOL 0 ML IV ONE (14:33)
[2021-09-01] MEDS ORDERED: GELATIN SPONGE,ABSORBABLE 1 SPONGE SPONGE TP ONE (14:34)
[2021-09-01] MEDS ORDERED: THROMBIN (BOVINE) 5,000 UNITS VIAL TP ONE (14:34)
--- NOTE | 2021-09-01 15:10 | NUR ---
RN Note: Pt aox4, VSS, picked up by OR team/Nurse, verbalizes and confirms procedure agreement
[2021-09-01] MEDS ORDERED: FENTANYL PF 100MCG/2ML AMPUL ONE (16:10)
[2021-09-01] MEDS ORDERED: ROCURONIUM BROMIDE 50 MG/5 ML ONE ×2 (16:18)
--- NOTE | 2021-09-01 17:05 | NUR ---
ICU/RN/PACU PT IS TRANSFERRED FROM OR FO RECOVERY ONLY. POST LEFT CHEST HEMODIALYSIS CATHETER PLACEMENT .PT AWAKE ALERT.V/S STABLE,AFEBRILE.NO PAIN REPORTED AT THIS TIME.NO S/S OF BLEEDING NOTED.BS-126.CONTINUE TO RECOVER.
--- NOTE | 2021-09-01 18:20 | NUR ---
ICU/RN/PACU DUE MEDS ARE GIVEN ORDERED.PT EATS 100% FROM HIS MEAL TRAY.CHEST X-RAY DONE.OK TO USE HD CATH.PT TRANSFERRED TO TELE UNIT .V/S STABLE.AFEBRILE.NO PIN REPORTED AT THIS TIME.
--- NOTE | 2021-09-01 18:28 | NUR ---
ACCESS LEAD NOTES RECEIVED PT FROM COBBLER UPPERELOISA VALDERRAMA VIA BED, PT IS AWAKE, ALERT AND ORIENTED, NO SOB, RESPIRATIONS NORMAL, CALL LIGHT WITHIN REACH, NEW DIALYSIS PERMACATH AT LEFT UPPER CHEST, NO BLEEDING NOTED, PT BEING PREPARED FOR DIALYSIS RIGHT NOW, ALL NEEDS ATTENDED.
--- NOTE | 2021-09-01 18:32 | NUR ---
RN Closing Notes Pt aOx4, states no discomfort, no signs of distress. Pt able to communicate concerns, he was able to call family and update them on status. No incidents throughout shift, bed at lowest position, call light at pts reach. Waiting on registered radiologic technologist.
--- NOTE | 2021-09-01 20:15 | NUR ---
RN OPENING NOTES RECEIVED PT IN BED, ASLEEP, AWAKENS TO VERBAL STIMULI, CURRENTLY RECEIVING HEMODIALYSIS. ON RA AND TOLERATING WELL. NO SOB NOTED. NO S/SX OF RESPIRATORY DISTRESS NOTED. TELE MONITOR DETECTS SINUS RHYTHM WITH BBB. IV ACCESS IN L HAND #20G, R FA FISTULA, AND L CHEST WELL PERMACATH. SAFETY PRECAUTIONS IN PLACE: BED IN LOWEST, LOCKED POSITION, SIDERAILS UPx2, AND BRAKES ON. TABLE AND CALL LIGHT WITHIN REACH. WILL CONTINUE TO MONITOR.
--- NOTE | 2021-09-01 20:30 | NUR ---
RT PT RECVD ON ROOM AIR AND RECEIVING IN ROOM DIALYSIS. PLACED ON NC 2 LPM DUE TO LOW SATURATION. NEB TX GIVEN AND PT CM WELL. NO SOB NOTED AT THIS TIME. PT REMAINS ON 2 LPM NC AT THIS TIME.
[2021-09-01] MEDS: ATORVASTATIN 10 MG TABLET PO SCH (21:41)
[2021-09-02] VITALS: BP 115/61
[2021-09-02] MEDS: BLOOD SUGAR DIAGNOSTIC 1 EACH STRIP IN SCH ×6 (01:20→21:01)
[2021-09-02] MEDS: INSULIN REGULAR, HUMAN 100 UNIT/ML 3 ML VIAL SQ PRN ×6 (01:25→21:04)
[2021-09-02] MEDS: IPRATROPIUM NEB FS 0.5 MG/2.5 ML AMPUL.NEB NEB SCH ×5 (03:25→20:13)
[2021-09-02] MEDS: ALBUTEROL FS 2.5 MG/0.5 ML VIAL.NEB NEB SCH ×5 (03:25→20:13)
[2021-09-02 04:00] VITALS: BP 114/55
--- NOTE | 2021-09-02 06:49 | NUR ---
RN CLOSING NOTES PT IN BED, ASLEEP, AWAKENS TO VERBAL STIMULI. AOx4, ABLE TO MAKE NEEDS KNOWN. ON RA AND TOLERATING WELL. NO SOB NOTED. NO S/SX OF RESPIRATORY DISTRESS NOTED. TELE MONITOR DETECTS SINUS RHYTHM WITH BBB. IV ACCESS IN L HAND #20G, R FA FISTULA, AND L CHEST WELL PERMACATH. ALL ORDERS CARRIED OUT. ALL NEEDS MET. PT KEPT CLEAN AND DRY/ SAFETY PRECAUTIONS IN PLACE: BED IN LOWEST, LOCKED POSITION, SIDERAILS UPx2, AND BRAKES ON. TABLE AND CALL LIGHT WITHIN REACH. WILL ENDORSE TO ONCOMING SHIFT FOR SANTOS.
--- NOTE | 2021-09-02 07:30 | NUR ---
RT Patient received on 2L nasal cannula. Breathing treatment tolerated well. No SOB or respiratory distress noted at this time.
--- NOTE | 2021-09-02 07:30 | NUR ---
RN OPENING NOTES RECEIVED PT IN BED, AWAKE, ALERT A/O X4, CURRENTLY RECEIVING HEMODIALYSIS. ON 2 LPM VIA NC. NO SOB NOTED.S/P PERMACATH ON LEFT UPPER CHEST. TELE MONITOR DETECTS SINUS RHYTHM WITH BBB WITH 67 HR. IV ACCESS IN L HAND #20G, R FA FISTULA, SAFETY PRECAUTIONS IN PLACE: BED IN LOWEST, LOCKED POSITION, SIDERAILS UPx2, AND BRAKES ON. TABLE AND CALL LIGHT WITHIN REACH. WITH BEDSIDE COMMODE, ADVISED PATIENT TO CALL IF HE NEEDS TO DEFECATE. WILL CONTINUE TO MONITOR.
[2021-09-02 08:00] VITALS: BP 105/46
[2021-09-02] MEDS: PANTOPRAZOLE 40 MG TABLET.DR PO SCH (08:22)
[2021-09-02] MEDS: PREGABALIN 25 MG CAPSULE PO SCH ×2 (08:22→17:45)
[2021-09-02] MEDS: AMMONIUM LACTATE 227 GM BOTTLE TP SCH (08:22)
[2021-09-02] MEDS: CLOPIDOGREL BISULFATE 75 MG TABLET PO SCH (08:22)
[2021-09-02] MEDS: VICTOZA IJ SCH (08:23)
[2021-09-02] MEDS: JULUCA PO SCH (08:23)
[2021-09-02] MEDS: AMIODARONE HCL 200 MG TABLET PO SCH (08:23)
[2021-09-02] MEDS: CARVEDILOL 3.125 MG TABLET PO SCH ×2 (08:24→17:00)
[2021-09-02] MEDS: INSULIN GLARGINE, 100 UNIT/ML CARTRIDGE SQ SCH ×2 (08:31→17:39)
[2021-09-02 09:21] LABS: BASOPHILS % (AUTO) 0.4 % (0.0-2.0); EOSINOPHILS % (AUTO) 4.8 % (0.0-6.0); HEMATOCRIT 32 % (39-51); HEMOGLOBIN 10.1 g/dL (13.5-17.5); LYMPHOCYTES # (AUTO) 0.8 K/uL (0.8-4.8); LYMPHOCYTES % (AUTO) 11.4 % (20.0-44.0); MEAN CORPUSCULAR HGB CONC 32 g/dl (31.0-36.0); MEAN CORPUSCULAR VOLUME 95 fL (80-96); MONOCYTES # (AUTO) 0.5 K/uL (0.1-1.30); MONOCYTES % (AUTO) 7.2 % (2.0-12.0); NEUTROPHILS # (AUTO) 5.4 K/uL (1.8-8.9); NEUTROPHILS % (AUTO) 76.2 % (43.0-81.0); PLATELET COUNT (AUTO) 131 K/uL (150-450); RED BLOOD CELL COUNT(AUTO) 3.36 MIL/uL (4.5-6.0); WHITE BLOOD COUNT (AUTO) 7.1 K/uL (4.3-11.0)
[2021-09-02 09:36] LABS: CALCIUM, SERUM 8.1 mg/dL (8.5-10.1); MAGNESIUM 2.2 mg/dL (1.8-2.4); POTASSIUM 4.7 mmol/L (3.5-5.1)
[2021-09-02 09:37] LABS: CREATININE 10.7 mg/dL (0.6-1.3); PHOSPHORUS 8.7 mg/dL (2.5-4.9)
[2021-09-02 12:00] VITALS: BP 167/64
[2021-09-02] MEDS ORDERED: DEXTROSE 50%-WATER 50 ML DISP.SYRIN IV PRN (12:00)
[2021-09-02 16:00] VITALS: BP 126/62
--- NOTE | 2021-09-02 18:59 | NUR ---
RN CLOSING NOTES PT IN BED WATCHING TV. AOx4, ABLE TO MAKE NEEDS KNOWN. ON 3L O2 VIA NASAL CANNULA AND TOLERATING WELL WITH O2 SAT OF 100%. SOME SOB NOTED. NO S/SX OF RESPIRATORY DISTRESS. TELE MONITOR SHOWS SINUS RHYTHM WITH 1ST DEGREE BLOCK WITH BBB AT 97 BPM. IV ACCESS IN L HAND #20G, R FA FISTULA, AND L CHEST WELL PERMACATH. S/P HD. LAST GLUCOSE READING WAS 278 AT 1725, DUE INSULIN GIVEN. ALL ORDERS CARRIED OUT. ALL NEEDS MET. PT KEPT CLEAN AND DRY/ SAFETY PRECAUTIONS IN PLACE: BED IN LOWEST, LOCKED POSITION, BOTH SIDE RAILS UP, AND BRAKES ON. TABLE AND CALL LIGHT WITHIN REACH. WILL ENDORSE TO ONCOMING NOC SHIFT FOR SANTOS.
[2021-09-02 20:00] VITALS: BP 137/49
--- NOTE | 2021-09-02 20:40 | NUR ---
RT PT RECVD AWAKE AND VERBAL ON 2 LPM NC. NEB TX GIVEN AND CM WELL. NO ADVERSE REACTION. SPO2 >96%. NO SOB OR RESPIRATORY DISTRESS NOTED AT THIS TIME.
[2021-09-02] MEDS: ATORVASTATIN 10 MG TABLET PO SCH (21:06)
--- NOTE | 2021-09-02 23:01 | NUR ---
RN NOTE PT C/O FEELING WEAK AND "NOT FEELING GOOD", PT HAVING DIFFICULTY BREATHING. MD AWARE. STAT ABG ORDERED. PT SITTING UP IN HIGH ABEBE'S IN BED WITH O2 @4LPM, O2 SAT 95%. WILL CONT TO MONITOR
[2021-09-02 23:21] LABS: ABG BASE EXCESS 1.4 mmol/L; ABG PCO2 68.1 mmHg (35.0-45.0); ABG PH 7.259 (7.350-7.450); ABG PO2 82.1 mmHg (75.0-100.0); AaDO2 37.2 mmHg; COHb 0.4 % (0.5-1.5); MetHb 0.4 % (0.0-1.5); O2Hb 93.2 % (94.0-97.0); SITE, ABG Left Brachial; VENT MODE, BG 2 LPM NC
--- NOTE | 2021-09-02 23:30 | NUR ---
RN NOTE RT WITH ABG RESULTS AND RELAYED TO ON-CALL HOSPITALISTPATRICIA WITH ORDER TO START PT ON BI-PAP 10/ SETTING AND RE-CHECK ABG 1HR AFTER STARTING BI-PAP. RT AWARE.
[2021-09-03] MEDS: ALBUTEROL FS 2.5 MG/0.5 ML VIAL.NEB NEB SCH ×7 (00:10→22:48)
[2021-09-03] MEDS: IPRATROPIUM NEB FS 0.5 MG/2.5 ML AMPUL.NEB NEB SCH ×7 (00:10→22:48)
--- NOTE | 2021-09-03 00:24 | NUR ---
RT STAT ABG DONE AT 2315, RESULTS GIVEN TO ELOISA RIVERA. BIPAP ORDER INITIATED. PT PLACED ON BIPAP WITH SETTINGS OF 12/5 RATE 24 40% FIO2. WILL FOLLOW UP WITH ABG ONE HOUR.
--- NOTE | 2021-09-03 01:30 | NUR ---
RT 1 HOUR ABG COMPLETED, RESULTS GIVEN TO PANTS CUTTER GURPREET. FIO2 INCREASED TO 50%. PT HAS REMOVED BIPAP MASK TWICE DURING 1ST HOUR OF BIPAP.
--- NOTE | 2021-09-03 01:30 | NUR ---
RN NOTE RT WITH ABG RE-DRAW RESULTS AND SENT TO ON-CALL HOSP. RT INCREASED FiO2 TO 50% AND WILL CONT TO MONITOR. PT WITH EPISODES OF TAKING OFF BIPAP. WILL CONT TO MONITOR.
[2021-09-03 01:32] LABS: ABG BASE EXCESS -0.2 mmol/L; ABG OXYGEN SATURATION 91.2 % (92.0-98.5); ABG PH 7.272 (7.350-7.450); ABG PO2 70.9 mmHg (75.0-100.0); AaDO2 144.2 mmHg; COHb 0.2 % (0.5-1.5); MetHb 0.4 % (0.0-1.5); O2Hb 90.7 % (94.0-97.0); SITE, ABG Left Brachial
[2021-09-03 04:00] VITALS: BP 151/72
--- NOTE | 2021-09-03 05:50 | NUR ---
RN NOTE RT REMOVED PT FROM BIPAP, NOW ON O2 @3LPM VIA NC. PT ASSISTED TO BEDSIDE COMMODE. ABLE TO CM BED TO COMMODE TRANSFER. PT STATES HE FEELS BETTER THIS MORNING AFTER HAVING THE BIPAP ON. NO ACUTE DISTRESS NOTED.
--- NOTE | 2021-09-03 06:23 | NUR ---
RT PT REMOVED FROM BIPAP AT 0545 Addendum: 09/03/21 at 0624 by UMA KHAN RT PLACED ON 3 LPM NC. NO SOB NOTED AT THIS TIME.
[2021-09-03 06:37] LABS: ABG BASE EXCESS -0.1 mmol/L; ABG OXYGEN SATURATION 93.2 % (92.0-98.5); ABG PCO2 64.1 mmHg (35.0-45.0); ABG PH 7.258 (7.350-7.450); ABG PO2 77.6 mmHg (75.0-100.0); AaDO2 75.6 mmHg; COHb 0.4 % (0.5-1.5); MetHb 0.3 % (0.0-1.5); O2Hb 92.5 % (94.0-97.0); SITE, ABG Left Brachial; VENT MODE, BG 3 LPM NC
--- NOTE | 2021-09-03 06:45 | NUR ---
RT 0600 ABG COMPLETED WHILE PT ON 3LPM NC, GAVE RESULTS TO ELOISA RIVERA. PLACED PT BACK ON BIPAP, ALARMS ARE ON AND AUDIBLE. VENT PLUGGED INTO RED OUTLET. PT IS AWAKE AND VERBAL.
--- NOTE | 2021-09-03 07:15 | NUR ---
RN NOTE RT WITH ABG'S DONE AND HAD PLACED PT BACK ON BIPAP. INSTRUCTED PT NOT TO TAKE OFF BIPAP. PT VERBALIZED UNDERSTANDING. NO ACUTE DISTRESS NOTED. ENDORSED TO NEXT SHIFT NURSE.
--- NOTE | 2021-09-03 07:30 | NUR ---
RN NOTE RECEIVED PATIENT IN BED ASLEEP, AROUSABLE TO TACTILE STIMULI. CURRENTLY ON BIPAP, SETTINGS TOLERATED WELL. NOTED WITH LEFT HAND #20G, INTACT AND PATENT AND WITH LCW PERMACATH, WITH DRESSING C/D/I. SAFETY MEASURE IN PLACE. BED IN LOWEST AND LOCKED POSITION. SIDE RAILS UP X2, CALL LIGHT PLACED WITHIN EASY REACH. WILL CONTINUE TO MONITOR PATIENT.
--- NOTE | 2021-09-03 07:35 | NUR ---
RN NOTES HEMODIALYSIS STARTED BY HD NURSE JOANNE.
[2021-09-03] MEDS: BLOOD SUGAR DIAGNOSTIC 1 EACH STRIP IN SCH ×4 (07:37→21:35)
[2021-09-03 08:00] VITALS: BP 124/104
[2021-09-03 08:16] LABS: BASOPHILS % (AUTO) 0.4 % (0.0-2.0); EOSINOPHILS % (AUTO) 3.5 % (0.0-6.0); HEMATOCRIT 32 % (39-51); LYMPHOCYTES % (AUTO) 14.2 % (20.0-44.0); MEAN CORPUSCULAR HGB CONC 32 g/dl (31.0-36.0); MEAN CORPUSCULAR VOLUME 95 fL (80-96); MONOCYTES # (AUTO) 0.6 K/uL (0.1-1.30); MONOCYTES % (AUTO) 8.1 % (2.0-12.0); NEUTROPHILS # (AUTO) 5.2 K/uL (1.8-8.9); NEUTROPHILS % (AUTO) 73.8 % (43.0-81.0); PLATELET COUNT (AUTO) 109 K/uL (150-450); RED BLOOD CELL COUNT(AUTO) 3.31 MIL/uL (4.5-6.0); WHITE BLOOD COUNT (AUTO) 7.1 K/uL (4.3-11.0)
[2021-09-03 08:44] LABS: CALCIUM, SERUM 8.5 mg/dL (8.5-10.1); MAGNESIUM 2.2 mg/dL (1.8-2.4); PHOSPHORUS 7.4 mg/dL (2.5-4.9); POTASSIUM 4.5 mmol/L (3.5-5.1)
[2021-09-03 08:53] LABS: CREATININE 8.7 mg/dL (0.6-1.3)
[2021-09-03] MEDS: PANTOPRAZOLE 40 MG TABLET.DR PO SCH (09:00)
[2021-09-03] MEDS: INSULIN GLARGINE, 100 UNIT/ML CARTRIDGE SQ SCH ×2 (09:00→16:58)
[2021-09-03] MEDS: CLOPIDOGREL BISULFATE 75 MG TABLET PO SCH (09:00)
[2021-09-03] MEDS: CARVEDILOL 3.125 MG TABLET PO SCH ×2 (09:00→17:20)
[2021-09-03] MEDS: VICTOZA IJ SCH (09:00)
[2021-09-03] MEDS: JULUCA PO SCH (09:00)
[2021-09-03] MEDS: PREGABALIN 25 MG CAPSULE PO SCH ×2 (09:00→17:20)
[2021-09-03] MEDS: AMIODARONE HCL 200 MG TABLET PO SCH (09:00)
[2021-09-03] MEDS: AMMONIUM LACTATE 227 GM BOTTLE TP SCH (09:04)
--- NOTE | 2021-09-03 09:05 | NUR ---
RN NOTE ALL BP MEDS NOT ADMINISTERED PATIENT ON HD. LANTUS AND VICTOZA HELD, BS 98 MG/DL.
--- NOTE | 2021-09-03 09:10 | NUR ---
RN NOTE JULUCA NOT ADMINISTERED, MED NOT AVAILABLE. PER PATIENT HE HAS THE MEDICATION AT HOME BUT NOBODY CAN BRING IT HERE IN THE HOSPITAL.
--- NOTE | 2021-09-03 10:35 | NUR ---
RN NOTES HEMODIALYSIS DONE, 3 LITERS OF FLUIDS REMOVED. PROCEDURE TOLERATE WELL. POST HD VITALS: 131/62, 78, 98.0, SPO2 98%.
[2021-09-03] MEDS: INSULIN REGULAR, HUMAN 100 UNIT/ML 3 ML VIAL SQ PRN ×3 (11:54→21:36)
[2021-09-03 12:54] LABS: ABG BASE EXCESS -1.4 mmol/L; ABG OXYGEN SATURATION 63.9 % (92.0-98.5); ABG PH 7.232 (7.350-7.450); ABG PO2 37.1 mmHg (75.0-100.0); COHb 0.7 % (0.5-1.5); MetHb 0.1 % (0.0-1.5); O2Hb 63.4 % (94.0-97.0); SITE, ABG Left Brachial; VENT MODE, BG 2L NC
[2021-09-03 16:00] VITALS: BP 136/53
--- NOTE | 2021-09-03 17:43 | NUR ---
RT Patient received on BIPAP. Breathing treatment tolerated well. ABG done. NOC BIPAP ordered. Placed on 2L nasal cannula at 1035am. No SOB or respiratory distress noted throughout shift.
--- NOTE | 2021-09-03 19:00 | NUR ---
RN CLOSING NOTES PATIENT IN BED ASLEEP, EASILY AROUSED. CURRENTLY ON O2 @ 2LPM VIA N/C, TOLERATING WELL. IV ACCESS ON LEFT HAND #20G, INTACT AND PATENT AND WITH LCW PERMACATH, WITH DRESSING C/D/I. ALL DUE MEDS GIVEN, TOLERATED WELL SAFETY MEASURE IN PLACE. BED IN LOWEST AND LOCKED POSITION. SIDE RAILS UP X2, CALL LIGHT PLACED WITHIN EASY REACH. WILL ENDORSE TO NEXT SHIFT FOR CONTINUITY OF CARE.
--- NOTE | 2021-09-03 19:20 | NUR ---
RN NOTE RECEIVED PT RESTING IN BED, EASILY AROUSABLE. DENIES PAIN. DENIES SOB. ON O2 @2LPM VIA NC, O2 SAT 96%. IV ACCESS: LH #20G INTACT/PATENT/FLUSHES WELL. HD ACCESS LCW PERMCATH IN PLACE WITH DRESSING C/D/I. 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 HAD DIALYSIS THIS MORNING WITH 3L OUT. TELE MONITOR READING SR, HR 87, WITH BBB AND 1ST DEG HB. PT IN NO ACUTE DISTRESS. SAFETY INSTRUCTIONS PROVIDED AND PT VERBALIZED UNDERSTANDING. WILL CONT TO MONITOR.
[2021-09-03 20:00] VITALS: BP 147/77
[2021-09-03] MEDS: ATORVASTATIN 10 MG TABLET PO SCH (21:35)
[2021-09-04] VITALS: BP 140/60
[2021-09-04 04:00] VITALS: BP 142/48
--- NOTE | 2021-09-04 04:30 | NUR ---
RN NOTE PT REQUESTED OFF BIPAP TO USE COMMODE. PLACED PT ON NASAL CANNULA @2LPM AND ASSISTED TO BEDSIDE COMMODE. TOLERATED [id number] TRANSFER WELL WITH NO DISTRESS.
[2021-09-04] MEDS: ALBUTEROL FS 2.5 MG/0.5 ML VIAL.NEB NEB SCH ×6 (04:43→23:44)
[2021-09-04] MEDS: IPRATROPIUM NEB FS 0.5 MG/2.5 ML AMPUL.NEB NEB SCH ×6 (04:43→23:44)
[2021-09-04 06:52] LABS: BASOPHILS % (AUTO) 0.3 % (0.0-2.0); EOSINOPHILS % (AUTO) 3.6 % (0.0-6.0); HEMATOCRIT 31 % (39-51); HEMOGLOBIN 9.9 g/dL (13.5-17.5); LYMPHOCYTES # (AUTO) 0.9 K/uL (0.8-4.8); MEAN CORPUSCULAR HGB CONC 32 g/dl (31.0-36.0); MEAN CORPUSCULAR VOLUME 94 fL (80-96); MONOCYTES # (AUTO) 0.5 K/uL (0.1-1.30); MONOCYTES % (AUTO) 7.4 % (2.0-12.0); NEUTROPHILS # (AUTO) 5.3 K/uL (1.8-8.9); NEUTROPHILS % (AUTO) 75.7 % (43.0-81.0); PLATELET COUNT (AUTO) 112 K/uL (150-450); RED BLOOD CELL COUNT(AUTO) 3.26 MIL/uL (4.5-6.0)
[2021-09-04 06:54] LABS: CALCIUM, SERUM 8.9 mg/dL (8.5-10.1); MAGNESIUM 2.2 mg/dL (1.8-2.4); POTASSIUM 4.1 mmol/L (3.5-5.1)
--- NOTE | 2021-09-04 06:57 | NUR ---
RN NOTE PT RESTING IN BED, EASILY AROUSABLE TO STIMULI. A/OX4. DENIES PAIN AT THIS TIME. RESPIRATIONS EVEN/UNLABORED, ON O2 @2LPM VIA NC AND CM WELL. PT IN NO ACUTE DISTRESS. SAFETY MEASURES MAINTAINED. ALL NEEDS ATTENDED TO.
[2021-09-04 07:03] LABS: CREATININE 8.3 mg/dL (0.6-1.3)
--- NOTE | 2021-09-04 07:05 | NUR ---
MS RN OPENING NOTE: RECEIVED PATIENT IN BED AWAKE, AOX4. ABLE TO MAKE NEEDS KNOWN. CURRENTLY ON O2 @ 2LPM VIA N/C, TOLERATING WELL WITH NO S/S OF RESPIRATORY DISTRESS. IV ACCESS ON LEFT HAND #20G, INTACT AND PATENT, SALINE LOCKED. PT. ALSO HAS LEFT CHEST WALLL PERMACATH, DRESSING C/D/I. SCHEDULED FOR HD TODAY. PT. ABLE TO MOVE FROM BED TO COMMODE WITH 1 PERSON ASSIST. SAFETY, FALL AND PRESSURE ULCER PRECAUTIONS IN PLACE: BED IN LOWEST AND LOCKED POSITION. SIDE RAILS UP X2, CALL LIGHT PLACED WITHIN EASY REACH, BED ALARM ON, WILL ENCOURAGE FREQUENT REPOSITIONING IN BED. WILL CONTINUE TO MONITOR FOR ANY CHANGES.
--- NOTE | 2021-09-04 07:06 | NUR ---
MS RN NOTE: PT. REMAINS ON TELE MONITORING WITH READING OF SR WITH BBB AND HEART RATE OF 84 BPM AT THIS TIME. WILL CONTINUE TO MONITOR FOR ANY CHANGES.
[2021-09-04] MEDS: PANTOPRAZOLE 40 MG TABLET.DR PO SCH (07:45)
[2021-09-04] MEDS: BLOOD SUGAR DIAGNOSTIC 1 EACH STRIP IN SCH ×4 (08:21→21:54)
[2021-09-04 09:53] VITALS: BP 137/55
[2021-09-04] MEDS: PREGABALIN 25 MG CAPSULE PO SCH ×2 (09:59→17:58)
[2021-09-04] MEDS: CLOPIDOGREL BISULFATE 75 MG TABLET PO SCH (09:59)
[2021-09-04] MEDS: CARVEDILOL 3.125 MG TABLET PO SCH ×2 (10:00→17:00)
[2021-09-04] MEDS: AMIODARONE HCL 200 MG TABLET PO SCH (10:00)
[2021-09-04] MEDS: VICTOZA IJ SCH (10:11)
[2021-09-04] MEDS: INSULIN GLARGINE, 100 UNIT/ML CARTRIDGE SQ SCH ×2 (10:11→18:00)
[2021-09-04] MEDS: AMMONIUM LACTATE 227 GM BOTTLE TP SCH (10:13)
[2021-09-04] MEDS: INSULIN REGULAR, HUMAN 100 UNIT/ML 3 ML VIAL SQ PRN ×3 (12:44→21:59)
--- NOTE | 2021-09-04 14:20 | NUR ---
MANAGER SOUND NOTE: PT. FINISHED HD (STARTED AT 1120) WITH OUTPUT OF 3L. PT.'S BP IS 135/66 AND HR OF 71BPM. REMAINS AOX4 AND ABLE TO VERBALIZED NEEDS. NO COMPLAINTS OF PAIN/DISCOMFORT AT THIS TIME. WILL CONTINUE TO MONITOR.
[2021-09-04 16:02] VITALS: BP 110/50
--- NOTE | 2021-09-04 19:12 | NUR ---
EVENING OR NIGHT NURSE SUPERVISOR CLOSING NOTE: PATIENT REMAINS IN BED AWAKE, AOX4. ABLE TO MAKE NEEDS KNOWN. NO COMPLAINTS OF PAIN/DISCOMFORT AT THIS TIME. CURRENTLY ON O2 @ 2LPM VIA N/C, TOLERATING WELL, BREATHING EVEN AND UNLABORED. ON TELE MONITOR WITH SR 1ST DEGREE BBB AND HR OF 79 BPM AT THIS TIME. IV ACCESS ON LEFT HAND #20G, INTACT AND PATENT, SALINE LOCKED. PT. ALSO HAS LEFT CHEST WALLL PERMACATH, DRESSING C/D/I. HD DONE TODAY WITH OUTPUT OF 3L. PT. ABLE TO MOVE FROM BED TO COMMODE WITH 1 PERSON ASSIST. STRICT I/O. SAFETY, FALL AND PRESSURE ULCER PRECAUTIONS MAINTAINED: BED IN LOWEST AND LOCKED POSITION. SIDE RAILS UP X2, CALL LIGHT PLACED WITHIN EASY REACH, BED ALARM ON, ENCOURAGED PT. TO MOVE FROM SIDE TO SIDE AT LEAST Q2H. WILL ENDORSE CONTINUITY OF CARE TO ASSISTED LIVING MANAGER RN.
--- NOTE | 2021-09-04 19:40 | NUR ---
TELERN AWAKE, V/S STABLE. NO NEEDS FOR NOW. DENIES ANY DISCOMFORTS, REMINDED TO CALL STAFF FOR ANY ASSISTANCE OR FURTHER DISCOMFORTS, CALL LIGHT WITHIN REACH. CLOSELY WATCHED.
[2021-09-04] MEDS: ATORVASTATIN 10 MG TABLET PO SCH (21:23)
--- NOTE | 2021-09-04 22:25 | NUR ---
TELERN BS 220, COVERED WITH 4 UNITS REGULAR INSULIN SQ PER SLIDING SCALE. SNACKS PROVIDED.
--- NOTE | 2021-09-04 23:00 | NUR ---
TELERN HS CARE DONE. HAS MODERATE AMOUNT SOFT STOOL X1. ALL NEEDS ATTENDED, 02 A 2L VIA NASAL CANNULA MAINTAINED.KEPT COMFORTABLE.
[2021-09-04 23:40] VITALS: BP 111/61
--- NOTE | 2021-09-04 23:44 | NUR ---
RT Notes Pt placed on NOC BIPAP per MD orders. RN aware. Will cont to monitor. Addendum: 09/05/21 at 0001 by BUCK COOPER RT Amended: Links added.
--- NOTE | 2021-09-04 23:50 | NUR ---
TELERN PATIENT NOW ON BIPAP PER RT.
[2021-09-05] VITALS: BP 94/62
[2021-09-05] MEDS: ALBUTEROL FS 2.5 MG/0.5 ML VIAL.NEB NEB SCH ×6 (03:17→23:08)
[2021-09-05] MEDS: IPRATROPIUM NEB FS 0.5 MG/2.5 ML AMPUL.NEB NEB SCH ×6 (03:17→23:08)
[2021-09-05 04:00] VITALS: BP 111/59
--- NOTE | 2021-09-05 06:44 | NUR ---
TELERN ASLEEP OF THIS TIME, WEIGHED PATIENT PER BED SCALE WAS 269.8 POUNDS. FOR HD TODAY.
[2021-09-05 06:49] LABS: BASOPHILS % (AUTO) 0.3 % (0.0-2.0); EOSINOPHILS % (AUTO) 5.6 % (0.0-6.0); HEMATOCRIT 31 % (39-51); HEMOGLOBIN 10.1 g/dL (13.5-17.5); LYMPHOCYTES # (AUTO) 0.7 K/uL (0.8-4.8); LYMPHOCYTES % (AUTO) 8.7 % (20.0-44.0); MEAN CORPUSCULAR HGB CONC 32 g/dl (31.0-36.0); MEAN CORPUSCULAR VOLUME 95 fL (80-96); MONOCYTES # (AUTO) 0.6 K/uL (0.1-1.30); MONOCYTES % (AUTO) 6.7 % (2.0-12.0); NEUTROPHILS # (AUTO) 6.5 K/uL (1.8-8.9); NEUTROPHILS % (AUTO) 78.7 % (43.0-81.0); PLATELET COUNT (AUTO) 112 K/uL (150-450); RED BLOOD CELL COUNT(AUTO) 3.29 MIL/uL (4.5-6.0); WHITE BLOOD COUNT (AUTO) 8.3 K/uL (4.3-11.0)
[2021-09-05 07:12] LABS: CALCIUM, SERUM 8.9 mg/dL (8.5-10.1); MAGNESIUM 2.1 mg/dL (1.8-2.4); PHOSPHORUS 6.8 mg/dL (2.5-4.9); POTASSIUM 4.2 mmol/L (3.5-5.1)
--- NOTE | 2021-09-05 07:30 | NUR ---
RN OPENING NOTE PATIENT IS IN BED AWAKE, ALERT ORIENTED X 4. WITH OXYGEN VIA NASAL CANNULA AT 2L/MIN, O2 SATURATION AT 99%. WITH LEFT HAND GAUGE 20 SALINE LOCK INTACT AND PATENT. WITH LEFT CHEST WALL PERMACATH COVERED WITH DRY DRESSING.SINUS RHYTHM ON ASSESSMENT EXPERT. DENIES PAIN, BREATHING UNLABORED AND NOT IN ANY FORM OF DISTRESS. BED IS LOCKED IN LOWEST POSITION, 3 SIDE RAILS UP, CALL LIGHT WITHIN REACH. WILL CONTINUE TO MONITOR THROUGHOUT SHIFT.
[2021-09-05 07:56] LABS: CREATININE 8.4 mg/dL (0.6-1.3)
[2021-09-05 08:00] VITALS: BP 114/55
[2021-09-05] MEDS: BLOOD SUGAR DIAGNOSTIC 1 EACH STRIP IN SCH ×4 (08:40→21:17)
[2021-09-05] MEDS: PANTOPRAZOLE 40 MG TABLET.DR PO SCH (08:44)
[2021-09-05] MEDS: AMIODARONE HCL 200 MG TABLET PO SCH (08:45)
[2021-09-05] MEDS: PREGABALIN 25 MG CAPSULE PO SCH ×2 (08:45→17:05)
[2021-09-05] MEDS: CLOPIDOGREL BISULFATE 75 MG TABLET PO SCH (08:46)
[2021-09-05] MEDS: CARVEDILOL 3.125 MG TABLET PO SCH ×2 (08:46→16:37)
[2021-09-05] MEDS: INSULIN GLARGINE, 100 UNIT/ML CARTRIDGE SQ SCH ×2 (08:51→17:09)
[2021-09-05] MEDS: AMMONIUM LACTATE 227 GM BOTTLE TP SCH (08:57)
[2021-09-05] MEDS: VICTOZA IJ SCH (09:00)
[2021-09-05] MEDS ORDERED: JULUCA PO SCH (09:00)
[2021-09-05 12:00] VITALS: BP 123/72
[2021-09-05] MEDS: INSULIN REGULAR, HUMAN 100 UNIT/ML 3 ML VIAL SQ PRN ×3 (12:29→21:26)
[2021-09-05] MEDS: MIDODRINE HCL (5MG) 5 MG TABLET PO PRN (13:24)
--- NOTE | 2021-09-05 15:16 | NUR ---
RN NOTE PATIENT DONE WITH HEMODIALYSIS, 2L OUTPUT.
[2021-09-05 15:34] VITALS: BP 109/59
[2021-09-05 17:28] LABS: ABG BASE EXCESS -2.8 mmol/L; ABG OXYGEN SATURATION 90.7 % (92.0-98.5); ABG PCO2 40.3 mmHg (35.0-45.0); ABG PH 7.362 (7.350-7.450); ABG PO2 61.3 mmHg (75.0-100.0); AaDO2 90.8 mmHg; MetHb 0.2 % (0.0-1.5); O2Hb 89.6 % (94.0-97.0); SITE, ABG Left Radial; VENT MODE, BG NASAL CANNULA
--- NOTE | 2021-09-05 17:40 | NUR ---
RN NOTE ABG DONE BY RT. PO2 AT 61.3 MMHG, O2 SET BY RT AT 3L/MIN VIA NASAL CANNULA.
[2021-09-05] MEDS: JULUCA PO SCH (18:09)
--- NOTE | 2021-09-05 18:49 | NUR ---
RN CLOSING NOTE PATIENT IS RESTING COMFORTABLY IN BED AND REMAINED STABLE THROUGHOUT SHIFT. DENIES PAIN, BREATHING UNLABORED AND NOT IN ANY FORM OF DISTRESS. ON OXYGEN VIA NASAL CANNULA AT 3L/MIN. LEFT CHEST WALL PERMA CATHETER IS INTACT AND COVERED WITH DRY DRESSING. LEFT HAND SALINE LOCK INTACT AND PATENT. PATIENT WAS KEPT COMFORTABLE THROUGHOUT SHIFT. BED IS LOCKED IN LOWEST POSITION, 3 SIDE RAILS UP, CALL LIGHT WITHIN REACH. WILL ENDORSE TO PRODUCT INFO SPECIALIST NURSE.
[2021-09-05 20:00] VITALS: BP 136/61
--- NOTE | 2021-09-05 20:00 | NUR ---
RN OPENING NOTE PATIENT IS RESTING COMFORTABLY IN BED AND STABLE. DENIES PAIN, BREATHING UNLABORED AND NOT IN ANY FORM OF DISTRESS. ON OXYGEN VIA NASAL CANNULA AT 3L/MIN. LEFT CHEST WALL PERMA CATHETER IS INTACT AND COVERED WITH DRY DRESSING. LEFT HAND SALINE LOCK INTACT AND PATENT. PATIENT WAS KEPT COMFORTABLE THROUGHOUT SHIFT. BED IS LOCKED IN LOWEST POSITION, 3 SIDE RAILS UP, CALL LIGHT WITHIN REACH. PT TO BE NPO AFTER MIDNIGHT FOR AV FISTULA PLACEMENT TOMORROW @2PM. WILL CONTINUE TO MONITOR.
[2021-09-05] MEDS: ATORVASTATIN 10 MG TABLET PO SCH (21:17)
--- NOTE | 2021-09-05 23:31 | NUR ---
commercial account manager NOTES PT KEEPS REFUSING BIPAP MACHINE KEEPS TAKING IT OFF DESPITE FREQUENT MONITORING AND EXPLANATION FOR RT AND I PLACED PT ON OXYGEN TO SEE IF HE WILL BE COMPLIANT WITH THAT WILL MONITOR CLOSELY.
[2021-09-06] VITALS (11 sets, daily range): BP systolic 86–145; BP diastolic 42–77
[2021-09-06] MEDS: IPRATROPIUM NEB FS 0.5 MG/2.5 ML AMPUL.NEB NEB SCH ×6 (04:11→23:55)
[2021-09-06] MEDS: ALBUTEROL FS 2.5 MG/0.5 ML VIAL.NEB NEB SCH ×6 (04:11→23:55)
[2021-09-06] MEDS: BLOOD SUGAR DIAGNOSTIC 1 EACH STRIP IN SCH ×4 (06:30→22:02)
[2021-09-06] MEDS: INSULIN REGULAR, HUMAN 100 UNIT/ML 3 ML VIAL SQ PRN ×3 (06:31→22:18)
--- NOTE | 2021-09-06 06:38 | NUR ---
RN CLOSING NOTE PATIENT IS RESTING COMFORTABLY IN BED AND STABLE. DENIES PAIN, BREATHING UNLABORED AND NOT IN ANY FORM OF DISTRESS. ON OXYGEN VIA NASAL CANNULA AT 3L/MIN. LEFT CHEST WALL PERMA CATHETER IS INTACT AND COVERED WITH DRY DRESSING. LEFT HAND SALINE LOCK INTACT AND PATENT. PATIENT WAS KEPT COMFORTABLE THROUGHOUT SHIFT. BED IS LOCKED IN LOWEST POSITION, 3 SIDE RAILS UP, CALL LIGHT WITHIN REACH. PT NPO SINCE MIDNIGHT FOR AV FISTULA PLACEMENT TODAY @2PM. ALL DUE MEDS GIVEN AND TOLERATED WELL. WILL ENDORSE CARE TO DAY SHIFT NURSE.
[2021-09-06 06:44] LABS: BASOPHILS % (AUTO) 0.3 % (0.0-2.0); EOSINOPHILS % (AUTO) 5.3 % (0.0-6.0); HEMATOCRIT 31 % (39-51); LYMPHOCYTES # (AUTO) 1.2 K/uL (0.8-4.8); LYMPHOCYTES % (AUTO) 15.3 % (20.0-44.0); MEAN CORPUSCULAR HGB CONC 32 g/dl (31.0-36.0); MEAN CORPUSCULAR VOLUME 95 fL (80-96); MONOCYTES # (AUTO) 0.7 K/uL (0.1-1.30); MONOCYTES % (AUTO) 8.4 % (2.0-12.0); NEUTROPHILS # (AUTO) 5.6 K/uL (1.8-8.9); NEUTROPHILS % (AUTO) 70.7 % (43.0-81.0); PLATELET COUNT (AUTO) 121 K/uL (150-450); RED BLOOD CELL COUNT(AUTO) 3.28 MIL/uL (4.5-6.0); WHITE BLOOD COUNT (AUTO) 7.9 K/uL (4.3-11.0)
[2021-09-06 06:54] LABS: CALCIUM, SERUM 8.8 mg/dL (8.5-10.1); CREATININE 7.3 mg/dL (0.6-1.3); PHOSPHORUS 5.9 mg/dL (2.5-4.9); POTASSIUM 3.9 mmol/L (3.5-5.1)
--- NOTE | 2021-09-06 07:20 | NUR ---
RADIO TESTER OPENING NOTE: RECEIVED PATIENT IN BED AWAKE, AOX4. ABLE TO MAKE NEEDS KNOWN. NO COMPLAINTS OF PAIN/DISCOMFORT AT THIS TIME. CURRENTLY ON O2 @ 2LPM VIA N/C, TOLERATING WELL, BREATHING EVEN AND UNLABORED. ON TELE MONITOR WITH SR 1ST DEGREE BBB AND HR OF 64 BPM AT THIS TIME. IV ACCESS ON LEFT HAND #20G, INTACT AND PATENT, SALINE LOCKED. PT. ALSO HAS LEFT CHEST WALL PERMACATH, DRESSING C/D/I. SCHEDULED FOR RIGHT ARM FISTULA PLACEMENT TODAY AT [address] WILBURN. CONSENTS SIGNED AND ON FILE. PT. ABLE TO MOVE FROM BED TO COMMODE WITH 1 PERSON ASSIST. STRICT I/O. SAFETY, FALL AND PRESSURE ULCER PRECAUTIONS IN PLACE: BED IN LOWEST AND LOCKED POSITION. SIDE RAILS UP X2, CALL LIGHT PLACED WITHIN EASY REACH, BED ALARM ON, ENCOURAGED PT. TO MOVE FROM SIDE TO SIDE AT LEAST Q2H. WILL CONTINUE TO MONITOR PT. FOR ANY CHANGES.
[2021-09-06] MEDS: PANTOPRAZOLE 40 MG TABLET.DR PO SCH ×2 (07:30→08:29)
[2021-09-06] MEDS: PREGABALIN 25 MG CAPSULE PO SCH ×3 (08:29→17:52)
[2021-09-06] MEDS: AMMONIUM LACTATE 227 GM BOTTLE TP SCH (08:29)
[2021-09-06] MEDS: AMIODARONE HCL 200 MG TABLET PO SCH (08:44)
[2021-09-06] MEDS: VICTOZA IJ SCH (08:44)
[2021-09-06] MEDS: CARVEDILOL 3.125 MG TABLET PO SCH ×2 (08:45→17:00)
[2021-09-06] MEDS: JULUCA PO SCH (08:45)
[2021-09-06] MEDS: INSULIN GLARGINE, 100 UNIT/ML CARTRIDGE SQ SCH ×2 (08:46→17:00)
[2021-09-06] MEDS: CLOPIDOGREL BISULFATE 75 MG TABLET PO SCH (08:46)
[2021-09-06] MEDS ORDERED: ANESTHESIA TRAY IN PYXIS 1 EA TRAY MC ONE (12:30)
[2021-09-06] MEDS ORDERED: HEPARIN SODIUM, PORCINE 1,000 UNIT/ML VIAL ONE (12:31)
[2021-09-06] MEDS ORDERED: GELATIN SPONGE,ABSORBABLE 1 SPONGE SPONGE TP ONE (12:31)
[2021-09-06] MEDS ORDERED: LIDOCAINE 1% INJ 50 ML MDV IJ ONE (12:31)
--- NOTE | 2021-09-06 13:45 | NUR ---
MS RN NOTE: PT. PICKED UP BY DIRECTOR OF COMPLIANCE DEAN FOR RIGHT ARM FISTULA PLACEMENT BY DR. WILBURN. BP 104/54; ID - [id number]; R - 18 BPM; SPO2 - 99% ON 2L NC; TEMP - 98.1 F; LAST BG - 102 MG/DL.
[2021-09-06] MEDS ORDERED: ROCURONIUM BROMIDE 50 MG/5 ML ONE (14:02)
[2021-09-06] MEDS ORDERED: FENTANYL PF 250MCG/5ML AMPUL ONE (14:02)
[2021-09-06] MEDS ORDERED: FAMOTIDINE/PF INJ 20 MG/2 ML VIAL IV ONE (14:02)
[2021-09-06] MEDS ORDERED: protAMINE SULFATE 10 MG/ML VIAL IV ONE (14:03)
[2021-09-06] MEDS ORDERED: HEPARIN SODIUM, PORCINE 5000 UNITS/1 ML VIAL ONE (14:03)
[2021-09-06] MEDS ORDERED: BUPIVACAINE 0.25% 75 MG/30 ML VIAL ONE (15:43)
--- NOTE | 2021-09-06 16:00 | NUR ---
RT Not Administered breathing tx. Pt was in the surgery Addendum: 09/06/21 at 1639 by JOSSE PERERA RT Pt went to surgery at 1530 not administered breathing tx.
--- NOTE | 2021-09-06 17:10 | NUR ---
MS RN NOTE: PT. CAME BACK FROM OR S/P RIGHT ARM AV FISTULA PLACEMENT WITH DEPUTY SHERIFF CUSTODY PAT. PT. TOLERATED PROCEDURE WELL. VS CHARTED. PRE-PROCEDURE ORDERS WILL BE PLACED BACK. PT. NOTED TO HAVE LEFT FOOT BLISTERS FILLED WITH FLUID THAT LOOKS LIKE WATER AND BLOOD. TOLD DEPUTY SHERIFF CUSTODY THAT THIS WAS NOT PRESENT THIS MORNING WHEN ORDERED AMMONIUM LACTATE LOTION WAS APPLIED. DR. WILBURN PUT IN WOUND TREATMENT. WILL FOLLOW ORDERED. WILL CONTINUE TO MONITOR PT. VITAL SIGNS. ONCE STABLE, SCHEDULED HD WILL START.
--- NOTE | 2021-09-06 17:58 | NUR ---
MS RN NOTE: LANTUS DOSE AT 1700 HELD DUE TO BG OF 97 AND PT. JUST GOT BACK FROM SURGERY AND HAS POOR APPETITE. CARVEDILOL DOSE AT 1700 HELD DUE TO SCHEDULED HD.
--- NOTE | 2021-09-06 19:21 | NUR ---
MS RN CLOSING NOTE: PATIENT REMAINS IN BED AWAKE, AOX4. ABLE TO VERBALIZE SIMPLE NEEDS. NO COMPLAINTS OF PAIN/DISCOMFORT AT THIS TIME. CURRENTLY ON O2 @ 5LPM VIA N/C, TOLERATING WELL, BREATHING EVEN AND UNLABORED. S/P RIGHT ARM AV FISTULA PLACEMENT BY DR. WILBURN. DRESSING C/D/I. IV ACCESS ON LEFT HAND #20G, INTACT AND PATENT, SALINE LOCKED. NO S/S OF PHLEBITIS AND INFILTRATION. PT. REMAINS TO HAVE LEFT CHEST WALL PERMACATH, DRESSING C/D/I. HD STARTED AT 1735 AND STILL ONGOING AT THIS TIME. PT. ON BED REST. HE HAD A LITTLE BIT OF APPETITE FOR DINNER. SAFETY, FALL AND PRESSURE ULCER PRECAUTIONS MAINTAINED: BED IN LOWEST AND LOCKED POSITION. SIDE RAILS UP X2, CALL LIGHT PLACED WITHIN EASY REACH, BED ALARM ON, ENCOURAGED PT. TO MOVE FROM SIDE TO SIDE AT LEAST Q2H. WILL ENDORSE CONTINUITY OF CARE TO HYDROELECTRIC MACHINERY MECHANIC HELPER RN.
--- NOTE | 2021-09-06 19:30 | NUR ---
MS/RN OPENING NOTE RECEIVED PATIENT RESTING IN BED. CURRENTLY RECEIVING HD AT BEDSIDE. PATIENT IS ALERT AND ORIENTED X 2-3. ABLE TO MAKE NEEDS KNOWN. DENIES PAIN AT THIS TIME. CONTINUES ON O2 5L VIA NC WITH NO S/SX OF RESPIRATORY DISTRESS NOTED. IV ACCESS TO LEFT HAND #20G INTACT, PATENT AND SALINE LOCKED. CONTINUES WITH HD PERMA CATH TO LEFT CW. RIGHT AV FISTULA IN PLACE AND WORKING S/P AV FISTULA PLACEMENT WITH DR. WILBURN. CALL LIGHT WITHIN REACH. ASPIRATION, FALL AND SAFETY PRECAUTIONS MAINTAINED. ALL NEEDS ATTENDED TO AT THIS TIME.
--- NOTE | 2021-09-06 20:45 | NUR ---
MS/RN NOTE PATIENT COMPLETED DIALYSIS. 3L WAS REMOVED TODAY. PATIENT WILL HAVE HD EVERY OTHER DAY ACCORDING TO JOANNE SHAW RN. NEXT DIALYSIS DAY WILL BE FRIDAY 09/08.
[2021-09-06] MEDS: ATORVASTATIN 10 MG TABLET PO SCH (22:01)
--- NOTE | 2021-09-07 | NUR ---
MS/RN NOTE PATIENTS BLISTER OPENED WITH MODERATE AMOUNT OF BLOOD NOTED. CHANGED DRESSING TO LEFT FOOT, ELEVATED WITH PILLOW. PATIENT CURRENTLY RESTING IN BED. ALL NEEDS ATTENDED TO AT THIS TIME.
[2021-09-07] MEDS: IPRATROPIUM NEB FS 0.5 MG/2.5 ML AMPUL.NEB NEB SCH ×6 (03:50→23:55)
[2021-09-07] MEDS: ALBUTEROL FS 2.5 MG/0.5 ML VIAL.NEB NEB SCH ×6 (03:50→23:54)
--- NOTE | 2021-09-07 04:48 | NUR ---
MS/RN NOTE PATIENT WITH C/O PAIN TO L FOOT BLISTER - ADMINISTERED PRN TYLENOL PER MD ORDERS.
--- NOTE | 2021-09-07 05:22 | NUR ---
MS/RN NOTE PATIENT WITH C/O PAIN TO LEFT FOOT BLISTER UNRELIEVED BY TYLENOL. NOTIFIED NEUROSCIENCE DIRECTOR NA MD SAMSON WITH NEW ORDER FOR NORCO 10/325MG PO Q6HR PRN. ORDER INPUTTED AND CARRIED OUT.
[2021-09-07] MEDS: HYDROCODONE/APAP 10/325MG TABLET PO PRN ×2 (05:31→23:58)
[2021-09-07] MEDS: BLOOD SUGAR DIAGNOSTIC 1 EACH STRIP IN SCH ×4 (06:18→21:28)
[2021-09-07 06:30] LABS: BASOPHILS % (AUTO) 0.3 % (0.0-2.0); EOSINOPHILS % (AUTO) 2.4 % (0.0-6.0); HEMATOCRIT 32 % (39-51); HEMOGLOBIN 10.6 g/dL (13.5-17.5); LYMPHOCYTES # (AUTO) 0.6 K/uL (0.8-4.8); LYMPHOCYTES % (AUTO) 6.8 % (20.0-44.0); MEAN CORPUSCULAR HGB CONC 33 g/dl (31.0-36.0); MEAN CORPUSCULAR VOLUME 94 fL (80-96); MONOCYTES # (AUTO) 0.6 K/uL (0.1-1.30); MONOCYTES % (AUTO) 6.6 % (2.0-12.0); NEUTROPHILS # (AUTO) 7.4 K/uL (1.8-8.9); NEUTROPHILS % (AUTO) 83.9 % (43.0-81.0); PLATELET COUNT (AUTO) 118 K/uL (150-450); RED BLOOD CELL COUNT(AUTO) 3.41 MIL/uL (4.5-6.0); WHITE BLOOD COUNT (AUTO) 8.8 K/uL (4.3-11.0)
[2021-09-07] MEDS: INSULIN REGULAR, HUMAN 100 UNIT/ML 3 ML VIAL SQ PRN ×4 (06:30→21:38)
--- NOTE | 2021-09-07 06:30 | NUR ---
MS/RN CLOSING NOTE PATIENT CURRENTLY SLEEPING IN BED. ALERT AND ORIENTED X 2-3. ABLE TO MAKE NEEDS KNOWN. DENIES PAIN AT THIS TIME. CONTINUES ON O2 2L VIA NC WITH NO S/SX OF RESPIRATORY DISTRESS NOTED. IV ACCESS TO LEFT HAND #20G INTACT, PATENT AND SALINE LOCKED. CONTINUES WITH HD PERMA CATH TO LEFT CW. RIGHT AV FISTULA IN PLACE . DRESSING TO LEFT FOOT BLISTER IS C/D/I. CALL LIGHT WITHIN REACH. ASPIRATION, FALL AND SAFETY PRECAUTIONS MAINTAINED. WILL ENDORSE PLAN OF CARE TO ONCOMING SHIFT RN.
[2021-09-07 07:03] LABS: CALCIUM, SERUM 8.4 mg/dL (8.5-10.1); CREATININE 7.2 mg/dL (0.6-1.3); PHOSPHORUS 6.4 mg/dL (2.5-4.9); POTASSIUM 4.5 mmol/L (3.5-5.1)
--- NOTE | 2021-09-07 07:15 | NUR ---
MS RN OPENING NOTE: RECEIVED PATIENT AWAKE IN BED A/OX4, ABLE TO MAKE NEEDS KNOWN. DENIES PAIN OR DISCOMFORT AT THIS TIME. ON O2 AT 2LPM VIA NC, NO S/S OF RESPIRATORY DISTRESS. IV ACCESS ON LEFT HAND #20G SALINE LOCKED. IV SITE PATENT AND FLUSHING WELL WITH NO S/S OF PHLEBITIS AND INFILTRATION. PT. HAS LEFT CHEST WALL PERMA CATH. DRESSING C/D/I. HE ALSO HAS SUNITHA AV FISTULA PLACED 09/06/21, DRESSING C/D/I. PT. ABLE TO TRANSFER FROM BED TO COMMODE WITH ASSIST. SAFETY, PRESSURE ULCER AND FALL PRECAUTIONS IN PLACE: BED LOCKED AND IN LOWEST POSITION, CALL LIGHT WITHIN REACH, BED ALARM ON, ENCOURAGED FREQUENT REPOSITIONING IN BED. WILL CONTINUE TO MONITOR PT. FOR ANY CHANGES.
[2021-09-07] MEDS: AMIODARONE HCL 200 MG TABLET PO SCH (08:19)
[2021-09-07] MEDS: JULUCA PO SCH (08:19)
[2021-09-07] MEDS: PREGABALIN 25 MG CAPSULE PO SCH ×2 (08:20→17:54)
[2021-09-07] MEDS: PANTOPRAZOLE 40 MG TABLET.DR PO SCH (08:20)
[2021-09-07] MEDS: CLOPIDOGREL BISULFATE 75 MG TABLET PO SCH (08:20)
[2021-09-07] MEDS: VICTOZA IJ SCH (08:22)
[2021-09-07] MEDS: INSULIN GLARGINE, 100 UNIT/ML CARTRIDGE SQ SCH ×2 (08:22→17:55)
[2021-09-07 08:45] VITALS: BP 112/74
[2021-09-07] MEDS: CARVEDILOL 3.125 MG TABLET PO SCH ×2 (09:00→17:00)
[2021-09-07] MEDS: AMMONIUM LACTATE 227 GM BOTTLE TP SCH (10:23)
[2021-09-07] MEDS ORDERED: ALBUMIN 25% 25 GM in PREMIX 1 EA IV PRN (12:00)
--- NOTE | 2021-09-07 12:00 | NUR ---
MS RN NOTE: PT. BLOOD GLUCOSE @ 164 MG/DL AT 1142. PT. REFUSED LUNCH TIME COVERAGE OF REGULAR INSULIN HE IS ON DIALYSIS RIGHT NOW AND HAD NO APPETITE TO EAT PRIOR THE BEGINNING OF HD.
--- NOTE | 2021-09-07 14:30 | NUR ---
MS RN NOTE: PT. FINISHED HD WITH OUTPUT OF 1500 ML. PT. NOT COMPLAINING OF DIZZINESS. NO S/S OF RESPIRATORY DISTRESS. AOX4.
[2021-09-07 16:16] VITALS: BP 90/42
[2021-09-07] MEDS: MIDODRINE HCL (5MG) 5 MG TABLET PO PRN (17:54)
[2021-09-07] MEDS: SILVER SULFADIAZINE CREAM 25 GM TUBE TP SCH (18:00)
--- NOTE | 2021-09-07 18:06 | NUR ---
MS RN NOTE: SILVADENE DOSE AT [address] GARCIA'S ORDER. WILL APPLY ONCE BLISTER ROOF LIFTS UP.
--- NOTE | 2021-09-07 19:20 | NUR ---
MS RN CLOSING NOTE: PATIENT REMAINS IN BED, WATCHING TV, A/OX4, ABLE TO VERBALIZE NEEDS. DENIES PAIN OR DISCOMFORT AT THIS TIME. ON O2 AT 2LPM VIA NC, BREATHING EVEN AND UNLABORED. IV ACCESS ON LEFT HAND #20G SALINE LOCKED. IV SITE PATENT AND FLUSHING WELL, NO S/S OF PHLEBITIS AND INFILTRATION. PT. HAS LEFT CHEST WALL PERMA CATH. DRESSING STILL C/D/I. HE ALSO HAS SUNITHA AV FISTULA, DRESSING C/D/I. SAFETY, PRESSURE ULCER AND FALL PRECAUTIONS MAINTAINED: BED LOCKED AND IN LOWEST POSITION, CALL LIGHT WITHIN EASY REACH, BED ALARM ON, ENCOURAGED FREQUENT REPOSITIONING IN BED. WILL ENDORSE CONTINUITY OF CARE TO SENIOR PORTFOLIO ANALYST RN.
--- NOTE | 2021-09-07 19:40 | NUR ---
MS/RN OPENING NOTE RECEIVED PATIENT SLEEPING IN BED. ALERT AND ORIENTED X 4. ABLE TO MAKE NEEDS KNOWN. DENIES PAIN AT THIS TIME. CONTINUES ON O2 2L VIA NC WITH NO S/SX OF RESPIRATORY DISTRESS NOTED. IV ACCESS TO LEFT HAND #20G INTACT, PATENT AND SALINE LOCKED. HD ACCESS TO LEFT CHEST WALL PERMA CATH. AV FISTULA TO RIGHT UPPER EXTREMITY. DRESSING TO LEFT FOOT IS C/D/I. CALL LIGHT WITHIN REACH. ASPIRATION, FALL AND SAFETY PRECAUTIONS MAINTAINED. ALL NEEDS ATTENDED TO AT THIS TIME.
[2021-09-07 20:00] VITALS: BP 115/48
--- NOTE | 2021-09-07 20:40 | NUR ---
RT NOTE RECEIVED PT ON 2LPM NC. TX GIVEN. NO S/S OF ACUTE RESPIRATORY DISTRESS NOTED. PLACED ON NOC BIPAP AT THIS TIME. PT AGREED TO BE PLACED ON BIPAP. RN AWARE.
[2021-09-07] MEDS: ATORVASTATIN 10 MG TABLET PO SCH (21:28)
--- NOTE | 2021-09-07 21:40 | NUR ---
MS/RN NOTE PATIENTS BLOOD SUGAR @ HS IS 166. ADMINISTERED INSULIN 3U PER SLIDING SCALE ORDER. PATIENT CONTINUES ON BIPAP. RESTING COMFORTABLY IN BED. ALL NEEDS ATTENDED TO AT THIS TIME.
--- NOTE | 2021-09-07 22:00 | NUR ---
RT NOTE FOUND PT ON ROOM AIR. PT SAID HE WANTED TO EAT AND DRINK WATER. THAT THE MACHINE WAS DRYING OUT HIS NOSE. SAID TO TRY AGAIN AT MIDNIGHT. RN AWARE.
--- NOTE | 2021-09-08 | NUR ---
MS/RN NOTE PATIENT WITH C/O PAIN TO BILATERAL FEET PAIN LEVEL 7/10. ADMINISTERED PRN NORCO PER MD ORDERS.
--- NOTE | 2021-09-08 00:04 | NUR ---
PLACED ON NOC BIPAP AT THIS TIME. PT AGREED TO BE PLACED ON BIPAP. RN AWARE. TX GIVEN.
--- NOTE | 2021-09-08 01:00 | NUR ---
FOUND PT OFF NOC BIPAP. NO S/S OF ACUTE RESPIRATORY DISTRESS NOTED. NO S/S/ OF SOB NOTED. WILL TRY TO PLACED ON BIPAP AGAIN LATER RN NOTIFIED.
[2021-09-08] MEDS ORDERED: HYDROMORPHONE 1 MG/1 ML DISP.SYRIN IV PRN (01:27)
--- NOTE | 2021-09-08 01:31 | NUR ---
MS/RN NOTE PATIENT WITH C/O PAIN TO RIGHT FOOT UNRELIEVED BY NORCO. NOTIFIED COMMUNITY COORDINATOR DIGITAL ANALYTICS MANAGER DICK SAMSON WITH NEW ORDER FOR DILAUDID 1MG IV X 1. ORDER INPUTTED AND CARRIED OUT.
[2021-09-08] MEDS: ALBUTEROL FS 2.5 MG/0.5 ML VIAL.NEB NEB SCH ×4 (03:38→16:00)
[2021-09-08] MEDS: IPRATROPIUM NEB FS 0.5 MG/2.5 ML AMPUL.NEB NEB SCH ×4 (03:39→16:00)
--- NOTE | 2021-09-08 03:42 | NUR ---
RT NOTE FOUND PT ON ROOM AIR SPO2 90. PTS NC ON BEDSIDE. TRIED TO GIVE BREATHING TX. KEPT REMOVING MASK. TRIED TO GIVE BY BLOW BY, PT PUSHED TX AWAY. PT IS NON COMPLIANT AT THE MOMENT. TRIED TO PUT PT BACK ON BIPAP X2. REMOVED THE MASK INSTANTLY. EXPLAINED BENEFITS OF BREATHING TX AND BIPAP. JUST KEPT REMOVING EVERYTHING. RN AWARE. NO S/S OF ACUTE RESPIRATORY DISTRESS NOTED.
[2021-09-08 06:36] LABS: BASOPHILS % (AUTO) 0.4 % (0.0-2.0); EOSINOPHILS % (AUTO) 3.7 % (0.0-6.0); HEMATOCRIT 32 % (39-51); HEMOGLOBIN 10.3 g/dL (13.5-17.5); LYMPHOCYTES # (AUTO) 0.7 K/uL (0.8-4.8); LYMPHOCYTES % (AUTO) 7.9 % (20.0-44.0); MEAN CORPUSCULAR HGB CONC 32 g/dl (31.0-36.0); MEAN CORPUSCULAR VOLUME 93 fL (80-96); MONOCYTES # (AUTO) 0.8 K/uL (0.1-1.30); MONOCYTES % (AUTO) 9.3 % (2.0-12.0); NEUTROPHILS # (AUTO) 6.9 K/uL (1.8-8.9); NEUTROPHILS % (AUTO) 78.7 % (43.0-81.0); PLATELET COUNT (AUTO) 121 K/uL (150-450); RED BLOOD CELL COUNT(AUTO) 3.43 MIL/uL (4.5-6.0); WHITE BLOOD COUNT (AUTO) 8.8 K/uL (4.3-11.0)
--- NOTE | 2021-09-08 06:40 | NUR ---
MS/RN CLOSING NOTE PATIENT CURRENTLY RESTING IN BED. AWAKE, ALERT AND ORIENTED X 4. ABLE TO MAKE NEEDS KNOWN. DENIES PAIN AT THIS TIME. CONTINUES TO REFUSE OXYGEN. CURRENT O2 SAT IS 90% ON ROOM AIR. IV ACCESS TO LEFT HAND #20G INTACT, PATENT AND SALINE LOCKED. HD ACCESS TO LEFT CHEST WALL PERMA CATH. AV FISTULA TO RIGHT UPPER EXTREMITY. DRESSING TO LEFT FOOT IS C/D/I. CALL LIGHT WITHIN REACH. ASPIRATION, FALL AND SAFETY PRECAUTIONS MAINTAINED. WILL ENDORSE PLAN OF CARE TO ONCOMING SHIFT RN.
[2021-09-08] MEDS: BLOOD SUGAR DIAGNOSTIC 1 EACH STRIP IN SCH ×3 (06:52→17:21)
[2021-09-08 07:01] LABS: CALCIUM, SERUM 8.6 mg/dL (8.5-10.1); CREATININE 6.4 mg/dL (0.6-1.3); PHOSPHORUS 5.8 mg/dL (2.5-4.9); POTASSIUM 4.2 mmol/L (3.5-5.1)
--- NOTE | 2021-09-08 07:43 | NUR ---
RN OPENING NOTE- PT RESTING IN BED. AWAKE, ALERT AND ORIENTED X 4. ABLE TO MAKE NEEDS KNOWN. DENIES PAIN AT THIS TIME. VS STABLE. IV ACCESS TO LEFT HAND #20G INTACT, HD ACCESS TO LEFT CHEST WALL PERMA CATH. AV FISTULA TO RIGHT UPPER EXTREMITY. DRESSING TO LEFT FOOT IS C/D/I. CALL LIGHT WITHIN REACH. ASPIRATION, FALL AND SAFETY PRECAUTIONS MAINTAINED. MONITOR / ASSIST
[2021-09-08 08:25] VITALS: BP 112/65
[2021-09-08] MEDS: PANTOPRAZOLE 40 MG TABLET.DR PO SCH (08:28)
[2021-09-08] MEDS: CARVEDILOL 3.125 MG TABLET PO SCH ×2 (08:28→17:00)
[2021-09-08] MEDS: CLOPIDOGREL BISULFATE 75 MG TABLET PO SCH (08:28)
[2021-09-08] MEDS: PREGABALIN 25 MG CAPSULE PO SCH ×2 (08:28→17:36)
[2021-09-08] MEDS: AMIODARONE HCL 200 MG TABLET PO SCH (08:29)
[2021-09-08] MEDS: JULUCA PO SCH (08:35)
[2021-09-08] MEDS: VICTOZA IJ SCH (08:35)
[2021-09-08] MEDS: INSULIN GLARGINE, 100 UNIT/ML CARTRIDGE SQ SCH ×2 (08:37→17:26)
[2021-09-08] MEDS: AMMONIUM LACTATE 227 GM BOTTLE TP SCH (08:58)
[2021-09-08] MEDS: SILVER SULFADIAZINE CREAM 25 GM TUBE TP SCH (08:58)
[2021-09-08] MEDS: INSULIN REGULAR, HUMAN 100 UNIT/ML 3 ML VIAL SQ PRN ×2 (11:57→17:22)
--- NOTE | 2021-09-08 12:45 | NUR ---
RN NOTE- HD RN AT BEDSIDE. INITIATED HD.
[2021-09-08 17:00] VITALS: BP 120/60
--- NOTE | 2021-09-08 19:05 | NUR ---
RN CLOSING NOTE- PT W HD TODAY 1999 OUT. VS STABLE , READY TO DC HOME. AMBULANCE ENROUTE. ORDERS REVIEWED AND UNDERSTOOD.
== END 2021-09-08 19:35 | disposition home health service (06) | DRG 264 ==
LOC: ER 10:12 → MED 13:49 → TELE 08-31 → ICU 09-01 17:02 → TELE 09-01 18:13 → MED 09-06 11:42
PROVIDERS: ADMIT Registered Nurse; ATTEND Nurse Practitioner Acute Care
PROC: 0JH63XZ Insertion of Tunneled Vascular Access Device into Chest Subcutaneous Tissue and Fascia, Percutaneous Approach (ICD-10-PCS; principal; 2021-09-01)
PROC: 02H633Z Insertion of Infusion Device into Right Atrium, Percutaneous Approach (ICD-10-PCS; 2021-09-01)
PROC: B518ZZA Fluoroscopy of Superior Vena Cava, Guidance (ICD-10-PCS; 2021-09-01)
PROC: 031709D Bypass Right Brachial Artery to Upper Arm Vein with Autologous Venous Tissue, Open Approach (ICD-10-PCS; 2021-09-06)
PROC: 5A1D70Z Performance of Urinary Filtration, Intermittent, Less than 6 Hours Per Day (ICD-10-PCS; 2021-09-08)
DX: T82.868A Thrombosis due to vascular prosthetic devices, implants and grafts, initial encounter (principal); J96.21 Acute and chronic respiratory failure with hypoxia; J96.22 Acute and chronic respiratory failure with hypercapnia; N18.6 End stage renal disease; R53.2 Functional quadriplegia; I12.0 Hypertensive chronic kidney disease with stage 5 chronic kidney disease or end stage renal disease; Y83.8 Other surgical procedures as the cause of abnormal reaction of the patient, or of later complication, without mention of misadventure at the time of the procedure; Y92.129 Unspecified place in nursing home as the place of occurrence of the external cause; Z99.2 Dependence on renal dialysis; E87.70 Fluid overload, unspecified; I25.10 Atherosclerotic heart disease of native coronary artery without angina pectoris; Z95.5 Presence of coronary angioplasty implant and graft; I25.2 Old myocardial infarction; Z99.3 Dependence on wheelchair; E66.01 Morbid (severe) obesity due to excess calories; Z68.37 Body mass index [BMI] 37.0-37.9, adult; E78.5 Hyperlipidemia, unspecified; E11.40 Type 2 diabetes mellitus with diabetic neuropathy, unspecified; Z79.4 Long term (current) use of insulin; D63.1 Anemia in chronic kidney disease; D69.6 Thrombocytopenia, unspecified; G47.33 Obstructive sleep apnea (adult) (pediatric)
CPT/HCPCS: 36415; 36600; 71045-TC; 80048-TC; 80061-TC; 82803-TC; 82962-TC; 83735-TC; 84100-TC; 84443-TC; 85025-TC; 85730-TC; 86706; 86850-TC; 87081-TC; 87340; 90935-TC; 93930-TC; 93971-TC; 94660; 94799-TC; A4216; A6253; A6403; C1750; C1769; C1894; C9803; G0378; J0690; J1170; J1644; J1815; J2405; J2704; J2720; J2765; J3010; J3490; J7030; P9047; Q9967